=== PATIENT | male | born 1955 | race American Indian/Alaskan Native ===

== ENCOUNTER 2018-10-14 11:29 | Emergency (ER) | payer MEDICARE ==
[2018-10-14 12:48] LABS: Basophils # (Auto) 0.1 K/mm3 (0.0-0.1); Basophils % (Auto) 1.2 % (0.0-1.8); Eosinophils # (Auto) 0.4 K/mm3 (0.0-0.4); Eosinophils % (Auto) 5.8 % (0.0-4.3); Hematocrit 34.3 % (35.5-45.6); Hemoglobin 11.3 gm/dl (11.8-15.2); Lymphocytes # (Auto) 0.5 K/mm3 (1.2-5.4); Lymphocytes % (Auto) 7.1 % (13.4-35.0); Mean Corpuscular HGB Conc 33 % (32-34); Mean Corpuscular Volume 88 fl (84-94); Monocytes # (Auto) 0.6 K/mm3 (0.0-0.8); Monocytes % (Auto) 8.6 % (0.0-7.3); Platelet Count 217 K/mm3 (140-440); Red Cell Distribution Width 16.6 % (13.2-15.2)
[2018-10-14 13:07] LABS: Albumin 3.6 g/dL (3.9-5); Calcium 9.9 mg/dL (8.4-10.2)
--- NOTE | 2018-10-14 13:48 | Emergency Department Report ---
ED General Adult HPI - General Chief complaint: Weakness Stated complaint: LEG PAIN/WEAKNESS/FALL Time Seen by Provider: 10/14/18 11:55 Source: EMS Mode of arrival: Stretcher Limitations: Physical Limitation - History of Present Illness Initial comments: The patient presents to the emergency department with a chief complaint of leg weakness that has been present for the last month. Patient states today while walking his knees gave way. Patient states that the weakness seems like it comes from his lower back and radiates into his legs. Denies any recent injury to his spine. Patient is a dialysis patient but still makes urine. Patient denies chest pain, shortness breath, numbness, headache. -: Gradual Severity scale (0 -10): 0 Improves with: none Worsens with: none Associated Symptoms: denies other symptoms Treatments Prior to Arrival: none - Related Data Previous Rx's Medication Instructions Recorded Last Taken Type Acetaminophen/Codeine [Tylenol 1 tab PO Q6H PRN #12 tab 10/14/18 Unknown Rx /Codeine # 3 tab] Allergies Allergy/AdvReac Type Severity Reaction Status Date / Time No Known Allergies Allergy Unverified 10/14/18 12:07 ED Review of Systems ROS: Stated complaint: LEG PAIN/WEAKNESS/FALL Other details as noted in HPI Comment: All other systems reviewed and negative Constitutional: denies: chills, fever Eyes: denies: eye pain, eye discharge, vision change ENT: denies: ear pain, throat pain Respiratory: denies: cough, shortness of breath, wheezing Cardiovascular: denies: chest pain, palpitations Endocrine: no symptoms reported Gastrointestinal: denies: abdominal pain, nausea, diarrhea Genitourinary: denies: urgency, dysuria Musculoskeletal: denies: back pain, joint swelling, arthralgia Skin: denies: rash, lesions Neurological: denies: headache, weakness, paresthesias Psychiatric: denies: anxiety, depression Hematological/Lymphatic: denies: easy bleeding, easy bruising ED Past Medical Hx - Past Medical History Previous Medical History?: Yes Hx Hypertension: Yes Hx Diabetes: Yes Hx Renal Disease: Yes (ESRD dialysis T, , Mon) - Surgical History Past Surgical History?: Yes Additional Surgical History: LUE AV graft - Social History Smoking Status: Never Smoker Substance Use Type: None - Medications Home Medications: Home Medications Medication Instructions Recorded Confirmed Last Taken Type Acetaminophen/Codeine [Tylenol 1 tab PO Q6H PRN #12 tab 10/14/18 Unknown Rx /Codeine # 3 tab] ED Physical Exam - General Limitations: Physical Limitation General appearance: alert, in no apparent distress - Head Head exam: Present: atraumatic, normocephalic - Eye Eye exam: Present: normal appearance, PERRL, EOMI - ENT ENT exam: Present: mucous membranes moist - Neck Neck exam: Present: normal inspection - Respiratory Respiratory exam: Present: normal lung sounds bilaterally. Absent: respiratory distress - Cardiovascular Cardiovascular Exam: Present: regular rate, normal rhythm. Absent: systolic murmur, diastolic murmur, rubs, gallop - GI/Abdominal GI/Abdominal exam: Present: soft, normal bowel sounds. Absent: distended, tenderness - Rectal Rectal exam: Present: deferred - Extremities Exam Extremities exam: Present: normal inspection - Back Exam Back exam: Present: normal inspection - Neurological Exam Neurological exam: Present: alert, oriented X3, CN II-XII intact. Absent: motor sensory deficit - Psychiatric Psychiatric exam: Present: normal affect, normal mood - Skin Skin exam: Present: warm, dry, intact, normal color. Absent: rash ED Course Vital Signs 10/14/18 10/14/18 10/14/18 12:06 13:39 14:14 Temperature 98.2 F Pulse Rate 98 H 92 H Respiratory 18 18 16 Rate Blood Pressure 150/96 Blood Pressure 156/79 [Right] O2 Sat by Pulse 96 97 Oximetry ED Medical Decision Making - Lab Data Result diagrams: 10/14/18 12:30 10/14/18 12:30 Lab Results 10/14/18 10/14/18 Range/Units 12:30 12:30 WBC 6.5 (4.5-11.0) K/mm3 RBC 3.90 (3.65-5.03) M/mm3 Hgb 11.3 L (11.8-15.2) gm/dl Hct 34.3 L (35.5-45.6) % MCV 88 (84-94) fl MCH 29 (28-32) pg MCHC 33 (32-34) % RDW 16.6 H (13.2-15.2) % Plt Count 217 (140-440) K/mm3 Lymph % (Auto) 7.1 L (13.4-35.0) % [place] % (Auto) 8.6 H (0.0-7.3) % Eos % (Auto) 5.8 H (0.0-4.3) % Baso % (Auto) 1.2 (0.0-1.8) % Lymph # 0.5 L (1.2-5.4) K/mm3 [place] # 0.6 (0.0-0.8) K/mm3 Eos # 0.4 (0.0-0.4) K/mm3 Baso # 0.1 (0.0-0.1) K/mm3 Seg Neutrophils % 77.3 H (40.0-70.0) % Seg Neutrophils # 5.0 (1.8-7.7) K/mm3 Sodium 136 L (137-145) mmol/L Potassium 4.5 (3.6-5.0) mmol/L Chloride 96.7 L (98-107) mmol/L Carbon Dioxide 24 (22-30) mmol/L Anion Gap 20 mmol/L BUN 38 H (9-20) mg/dL Creatinine 7.8 H (0.8-1.5) mg/dL Estimated GFR 9 ml/min BUN/Creatinine Ratio 5 % Glucose 336 H (75-100) mg/dL Calcium 9.9 (8.4-10.2) mg/dL Total Bilirubin 0.30 (0.1-1.2) mg/dL AST 11 (5-40) units/L ALT 13 (7-56) units/L Alkaline Phosphatase 131 H (35-129) units/L Total Protein 7.4 (6.3-8.2) g/dL Albumin 3.6 L (3.9-5) g/dL Albumin/Globulin Ratio 0.9 % - Radiology Data Radiology results: report reviewed - Medical Decision Making Discussed results with patient Critical care attestation.: If time is entered above; I have spent that time in minutes in the direct care of this critically ill patient, excluding procedure time. ED Disposition Clinical Impression: Lumbar disc disease with radiculopathy Disposition: DC- TO HOME OR SELFCARE Is pt being admited?: No Does the pt Need Aspirin: No Condition: Stable Instructions: Lumbar Radiculopathy (ED) Additional Instructions: return if worse Prescriptions: Acetaminophen/Codeine [Tylenol /Codeine # 3 tab] 1 tab PO Q6H PRN #12 tab PRN Reason: pain Referrals: JAIR BERRY MD [Primary Care Provider] - 3-5 Days PERRI LEON MD [Staff Physician] - 3-5 Days Time of Disposition: 14:53
--- NOTE | 2018-10-14 14:09 | Cat Scan Report ---
PROCEDURE: CT LUMBAR SPINE WO CON TECHNIQUE: CT of the lumbar spine performed. Axial images and coronal and sagittal reformatted images were obtained. HISTORY: leg weakness COMPARISON: None FINDINGS: Vertebral heights and alignment are maintained. There is no fracture seen. There is a large Schmorl's node involving the inferior endplate of L3. At L1-2 there is mild facet arthropathy. There is no spinal or neuroforaminal stenosis. At L2-3 there is moderate facet arthropathy and enlargement. There is no spinal or neuroforaminal pako nosis. At L3-4 there is a mildly narrowed intervertebral disc which demonstrates a mild broad-based bulge. T here is endplate spurring. There is moderate facet arthropathy and enlargement with ligamentum flavum hypertrophy. Findings cause mild spinal stenosis. Note is made of a large Schmorl's node involving t he inferior endplate of L3. There is some adjacent sclerotic change in the vertebra. At L4-5 there is a moderately narrowed vacuum intervertebral discs. There is diffuse moderate endplat e spurring and the mild posterior disc osteophyte complex. There is mild facet arthropathy and enlarg ement. Findings cause mild spinal stenosis. At L5-S1 there is no disc protrusion or spinal stenosis. There is mild facet arthropathy. IMPRESSION: Multilevel degenerative changes. Disc disease most notable at L4-5. Facet arthropathy most notable at L3-4. Findings cause mild spinal stenosis at both levels. Note is made of L3 large inferior endplate Schmorl's node. This document is electronically signed by Brenda Morales MD., October 14 2018 03:07:40 PM ET
[2018-10-14 14:15] VITALS: BP 156/79
== END 2018-10-14 15:30 | disposition home or self-care (01) ==
LOC: ED 11:29
DX: M51.16 Intervertebral disc disorders with radiculopathy, lumbar region (principal); E11.22 Type 2 diabetes mellitus with diabetic chronic kidney disease; I12.0 Hypertensive chronic kidney disease with stage 5 chronic kidney disease or end stage renal disease; N18.6 End stage renal disease; Z99.2 Dependence on renal dialysis
CPT/HCPCS: 36415; 72131; 80053; 85025; 93005; 93010

== ENCOUNTER 2019-04-29 10:15 | Inpatient (IN) | payer MEDICARE ==
--- NOTE | 2019-04-29 12:34 | Cat Scan Report ---
CT head/brain wo con INDICATION / CLINICAL INFORMATION: 63 years Male; neuro deficits <6hrs or sx present upon awakening. TECHNIQUE: Routine CT head without contrast. All CT scans at this location are performed using CT dos e reduction for ALARA by means of automated exposure control. COMPARISON: None. FINDINGS: BRAIN / INTRACRANIAL CONTENTS: No acute hemorrhage, mass effect, midline shift, hydrocephalus, or acu te, large territorial infarct. Mild cerebral and cerebellar atrophy. There are minimal areas of decreased attenuation in the white matter of the cerebral hemispheres. The se are nonspecific findings and may be related to microangiopathy (hypertension, diabetes, atheroscle rosis), given the patient's age. It might be difficult to evaluate for small areas of ischemia withou t diffusion imaging by MRI. CRANIOCERVICAL JUNCTION: No significant abnormality. ORBITS: No significant abnormality of visualized orbits. SINUSES / MASTOIDS: No significant abnormality the visualized paranasal sinuses or mastoid air cells. ADDITIONAL FINDINGS: Atherosclerotic disease is seen in the anterior and posterior circulation. IMPRESSION: 1. No focal mass, hemorrhage, hydrocephalus, or large infarct seen. This exam was performed as part of a code stroke protocol. The exam was completed on 04/29/2019 11:21 AM. The exam was reviewed at 11:[address] Nicolas was notified at 11:27 AM. Signer Name: Grayson Vaughn MD, III Signed: 04/29/2019 12:30 PM Workstation Name: [id number]
[2019-04-29 13:03] LABS: INR 0.96 (0.87-1.13)
[2019-04-29 13:04] LABS: Partial Thromboplastin Time 27.9 Sec. (24.2-36.6)
[2019-04-29 13:14] LABS: Calcium 9.8 mg/dL (8.4-10.2)
--- NOTE | 2019-04-29 13:16 | Emergency Department Report ---
ED General Adult HPI - General Chief complaint: Extremity Problem,Nontraumatic Stated complaint: CVA Time Seen by Provider: 04/29/19 11:39 Source: patient, EMS Mode of arrival: Stretcher Limitations: Physical Limitation - History of Present Illness Initial comments: [facility] Date of Service: 04/29/2019 11:49:42 Impression: RO Acute Ischemic Stroke Comments: 63 year old male with history of CKD who presents with symptoms left side weakness and slurred speech. Presentation is likely due to stroke. Mechanism of Stroke: Not Clear Metrics: Last Known Well: Unknown [facility] Notification Time: 04/29/2019 11:48:47 Arrival Time: 04/29/2019 10:42:00 Stamp Time: 04/29/2019 11:49:42 Time First Login Attempt: 04/29/2019 11:49:00 Video Start Time: 04/29/2019 11:49:00 Symptoms: Left side weakness NIHSS Start Assessment Time: 04/29/2019 12:15:00 Patient is not a candidate for tPA. Patient was not deemed candidate for tPA thrombolytics because of Last Well Known Above 4.5 Hours. Video End Time: 04/29/2019 12:20:00 CT head was reviewed. Advanced imaging was not obtained as the presentation was not suggestive of Large Vessel Occlusive Disease. ER Physician notified of the decision on thrombolytics management on 04/29/2019 12:40:00 Our recommendations are outlined below. Recommendations: Activate Stroke Protocol Admission/Order Set Stroke/Telemetry Floor Neuro Checks Bedside Swallow Eval DVT Prophylaxis IV Fluids, Normal Saline Head of Bed Below 30 Degrees Euglycemia and Avoid Hyperthermia (PRN Acetaminophen) Antiplatelet Therapy Recommended Recommended Scan: MRI Head Without Contrast MRA Neck with and Without Contrast Lipid Panel to Be Obtained, if Not Done in the Last Three Months Therapies: Physical Therapy, Occupational Therapy, Speech Therapy Assessment When Applicable Dysphaghia Screen: Swallow Evaluation, Bedside NPO Until Swallow Evaluation DVT prophylaxis: Choice of Primary Team Disposition: Follow up with Teleneurology Follow up Sign Out: Discussed with Emergency Department Provider History of Present Illness: Patient is a 63 year old Male. Patient was brought by private transportation with symptoms of Left side weakness 63 year old male with a history of CKD on dialysis who presents with left arm numbness and weakness for the past 1-2 weeks. Today patient noted worsening of his left side weakness as well as difficulty with slurred speech. On presentation patient felt like his speech had resolved mostly but his weakness still persisted. CT head was reviewed. Examination: 1A: Level of Consciousness - Alert; keenly responsive + 0 1B: Ask Month and Age - Could Not Answer Either Question Correctly + 2 1C: Blink Eyes & Squeeze Hands - Performs Both Tasks + 0 2: Test Horizontal Extraocular Movements - Normal + 0 3: Test Visual Choudhury - No Visual Loss + 0 4: Test Facial Palsy (Use Grimace if Obtunded) - Normal symmetry + 0 5A: Test Left Arm Motor Drift - Drift, but doesn't hit bed + 1 5B: Test Right Arm Motor Drift - No Drift for 10 Seconds + 0 6A: Test Left Leg Motor Drift - Drift, but doesn't hit bed + 1 6B: Test Right Leg Motor Drift - No Drift for 5 Seconds + 0 7: Test Limb Ataxia (FNF/Heel-Kamara) - No Ataxia + 0 8: Test Sensation - Normal; No sensory loss + 0 9: Test Language/Aphasia - Mild-Moderate Aphasia: Some Obvious Changes, Without Significant Limitation + 1 10: Test Dysarthria - Mild-Moderate Dysarthria: Slurring but can be understood + 1 11: Test Extinction/Inattention - No abnormality + 0 NIHSS Score: 6 Patient was informed the Neurology Consult would happen via TeleHealth consult by way of interactive audio and video telecommunications and consented to receiving care in this manner. Due to the immediate potential for life-threatening deterioration due to underlying acute neurologic illness, I spent 35 minutes providing critical care. This time includes time for face to face visit via telemedicine, review of medical records, imaging studies and discussion of findings with providers, the patient and/or family. Dr Samantha Dubon [facility] Case [id number] - Related Data Previous Rx's Medication Instructions Recorded Last Taken Type Acetaminophen/Codeine [Tylenol 1 tab PO Q6H PRN #12 tab 10/14/18 Unknown Rx /Codeine # 3 tab] Allergies Allergy/AdvReac Type Severity Reaction Status Date / Time No Known Allergies Allergy Unverified 10/14/18 12:07 ED Review of Systems ROS: Stated complaint: CVA Other details as noted in HPI ED Past Medical Hx - Past Medical History Hx Hypertension: Yes Hx Diabetes: Yes Hx Renal Disease: Yes (ESRD dialysis T, , Mon) - Surgical History Additional Surgical History: LUE AV graft - Social History Smoking Status: Never Smoker Substance Use Type: None - Medications Home Medications: Home Medications Medication Instructions Recorded Confirmed Last Taken Type Acetaminophen/Codeine [Tylenol 1 tab PO Q6H PRN #12 tab 10/14/18 Unknown Rx /Codeine # 3 tab] ED Physical Exam - General Limitations: Physical Limitation ED Course Vital Signs 04/29/19 04/29/19 04/29/19 10:38 10:42 11:01 Temperature 97.6 F Pulse Rate 88 87 80 Respiratory 12 13 12 Rate Blood Pressure 186/86 165/78 O2 Sat by Pulse 99 99 98 Oximetry 04/29/19 04/29/19 12:14 12:31 Temperature Pulse Rate 88 Respiratory 15 Rate Blood Pressure 165/78 217/103 O2 Sat by Pulse 98 97 Oximetry ED Medical Decision Making - Lab Data Result diagrams: 04/29/19 12:27 Critical care attestation.: If time is entered above; I have spent that time in minutes in the direct care of this critically ill patient, excluding procedure time. ED Disposition Clinical Impression: Stroke Disposition: DC-09 OP ADMIT IP TO THIS HOSP Is pt being admited?: Yes Condition: Stable
[2019-04-29 13:30] LABS: Chol/HDL Ratio 4.2 %
[2019-04-29 13:57] LABS: Basophils # (Auto) 0.1 K/mm3 (0.0-0.1); Eosinophils # (Auto) 0.4 K/mm3 (0.0-0.4); Eosinophils % (Auto) 6.4 % (0.0-4.3); Hematocrit 31.4 % (35.5-45.6); Hemoglobin 10.1 gm/dl (11.8-15.2); Lymphocytes % (Auto) 10.1 % (13.4-35.0); Mean Corpuscular HGB Conc 32 % (32-34); Mean Corpuscular Volume 87 fl (84-94); Monocytes # (Auto) 0.7 K/mm3 (0.0-0.8); Monocytes % (Auto) 10.4 % (0.0-7.3); Platelet Count 246 K/mm3 (140-440); Red Blood Count 3.59 M/mm3 (3.65-5.03)
[2019-04-29 13:58] LABS: Red Cell Distribution Width 17.9 % (13.2-15.2)
[2019-04-29 13:59] LABS: Basophils % (Auto) 0.9 % (0.0-1.8); Lymphocytes # (Auto) 0.6 K/mm3 (1.2-5.4)
--- NOTE | 2019-04-29 14:28 | Emergency Department Report ---
ED Neuro Deficit HPI - General Chief Complaint: Extremity Problem,Nontraumatic Stated Complaint: CVA Time Seen by Provider: 04/29/19 11:39 Source: patient, EMS Mode of arrival: Stretcher Limitations: Physical Limitation - History of Present Illness Initial Comments: This is a 63-year-old man who is a very difficult historian. He was thought to have stroke symptoms which started on Monday. It may be that his sister who is extremely variable. My encounter he tells me he developed acute left sided weakness and numbness in his left arm associated with right facial numbness and drooping which began at 8 AM today. He is very hard of hearing. I had to ask him multiple times regarding his last known well time. This is the best history I could obtain which was variable from his triage history. However, he has a very variable historian and I can't say that this history is at all reliable. The patient also told me that he was having healing of his arm on Monday. He stated that his difficulty with ambulation speech occurred at 8 AM today. Due to the variability of his history, a code stroke was not called at triage. I saw the patient at approximately 1140 when I first picked up his chart. Emergency Department was very dizzy with more alterable admissions and critical care patients. I did call a code stroke at the time of my encounter. Was seen by tele-neurologist who could not determine with accuracy what his last known well time was. His family additionally was of no additional information. -: Gradual, hour(s) Location: right face, left arm, left leg Presenting Symptoms: Present: Weak/Paralyzed One Side, Unable to Speak Clearly History of same: No Place: home Severity: moderate, severe Quality: weak, numb, tingling Improves With: none On Anticoagulants: No Context: gradual onset - Related Data Home Medications: Previous Rx's Medication Instructions Recorded Last Taken Type Acetaminophen/Codeine [Tylenol 1 tab PO Q6H PRN #12 tab 10/14/18 Unknown Rx /Codeine # 3 tab] Allergies/Adverse Reactions: Allergies Allergy/AdvReac Type Severity Reaction Status Date / Time No Known Allergies Allergy Unverified 10/14/18 12:07 ED Review of Systems ROS: Stated complaint: CVA Other details as noted in HPI ED Past Medical Hx - Past Medical History Hx Hypertension: Yes Hx Diabetes: Yes Hx Renal Disease: Yes (ESRD dialysis T, , Mon) - Surgical History Additional Surgical History: LUE AV graft - Social History Smoking Status: Never Smoker Substance Use Type: None - Medications Home Medications: Home Medications Medication Instructions Recorded Confirmed Last Taken Type Acetaminophen/Codeine [Tylenol 1 tab PO Q6H PRN #12 tab 10/14/18 Unknown Rx /Codeine # 3 tab] ED Neuro Physical Exam - General Limitations: Physical Limitation General appearance: alert, in no apparent distress Suspected Stroke: Yes - Head Head exam: Present: atraumatic, normocephalic - Eye Eye exam: Present: normal appearance. Absent: scleral icterus - ENT ENT exam: Present: mucous membranes moist - Neck Neck exam: Present: normal inspection. Absent: tenderness, meningismus - Respiratory Respiratory exam: Present: normal lung sounds bilaterally. Absent: respiratory distress - Cardiovascular Cardiovascular Exam: Present: regular rate, normal rhythm. Absent: systolic murmur, diastolic murmur, rubs, gallop - GI/Abdominal GI/Abdominal exam: Present: soft, normal bowel sounds. Absent: distended, tenderness, guarding, rebound - Rectal Rectal exam: Present: deferred - Extremities Exam Extremities exam: Present: normal inspection - Back Exam Back exam: Present: other (paramedics started an IV above the patient's graft. This was removed by nursing here. Fistula noted right forearm) - Neurological Exam Neurological exam: Present: alert, motor sensory deficit. Absent: CN II-XII intact - NIHSS Assessment Interval: Baseline 1a. Level of Consciousness: alert/keenly responsive 1b. LOC Questions: answers both correctly 1c. LOC Commands: performs tasks correctly 2. Best Gaze: normal 3. Visual: no visual loss 4. Facial Palsy: partial paralysis 5b. Motor Arm Right: no drift 5a. Motor Arm Left: no drift (patient passed the test of drift but does appear to have tremor and 4+5 strength on the left side.) 6a. Motor Leg Left: no drift (see above) 6b. Motor Leg Right: no drift 7. Limb Ataxia: absent 8. Sensory: mild/moderate sensory loss (left arm sensory change) 9. Best Language: no aphasia 10. Dysarthria: mild/moderate dysarthria 11. Extinction/Inattention: no abnormality Total Score: 4 Stroke Severity: Minor Stroke - Psychiatric Psychiatric exam: Present: normal affect, normal mood - Skin Skin exam: Present: warm, dry, intact, normal color. Absent: rash ED Course Vital Signs 04/29/19 04/29/19 04/29/19 10:38 10:42 11:01 Temperature 97.6 F Pulse Rate 88 87 80 Respiratory 12 13 12 Rate Blood Pressure 186/86 165/78 Blood Pressure [Right] O2 Sat by Pulse 99 99 98 Oximetry 04/29/19 04/29/19 04/29/19 12:05 12:14 12:31 Temperature Pulse Rate 88 Respiratory 20 15 Rate Blood Pressure 165/78 217/103 Blood Pressure [Right] O2 Sat by Pulse 100 98 97 Oximetry 04/29/19 04/29/19 13:15 13:33 Temperature Pulse Rate 84 84 Respiratory 14 Rate Blood Pressure 194/102 Blood Pressure 210/93 [Right] O2 Sat by Pulse 98 Oximetry - Reevaluation(s) Reevaluation #1: His blood pressure became extremely elevated. He was given a small dose of labetalol. Consult with teleneurology feel the patient was a candidate for TPA. 04/29/19 14:38 I spoke to nephrology, Dr. Hernadez will be seeing the patient. The patient was given Kayexalate. I spoke with Dr. Vyas who has admitted the patient. - Lab Data Result diagrams: 04/29/19 13:10 04/29/19 12:27 Lab Results 04/29/19 04/29/19 04/29/19 Range/Units 12:27 12:27 13:10 WBC 6.4 (4.5-11.0) K/mm3 RBC 3.59 L (3.65-5.03) M/mm3 Hgb 10.1 L (11.8-15.2) gm/dl Hct 31.4 L (35.5-45.6) % MCV 87 (84-94) fl MCH 28 (28-32) pg MCHC 32 (32-34) % RDW 17.9 H (13.2-15.2) % Plt Count 246 (140-440) K/mm3 Lymph % (Auto) 10.1 L (13.4-35.0) % [place] % (Auto) 10.4 H (0.0-7.3) % Eos % (Auto) 6.4 H (0.0-4.3) % Baso % (Auto) 0.9 (0.0-1.8) % Lymph # 0.6 L (1.2-5.4) K/mm3 [place] # 0.7 (0.0-0.8) K/mm3 Eos # 0.4 (0.0-0.4) K/mm3 Baso # 0.1 (0.0-0.1) K/mm3 Seg Neutrophils % 72.2 H (40.0-70.0) % Seg Neutrophils # 4.6 (1.8-7.7) K/mm3 PT 12.9 (12.2-14.9) Sec. INR 0.96 (0.87-1.13) APTT 27.9 (24.2-36.6) Sec. Thrombin Time 17.0 (15.1-19.6) Sec. Sodium 140 (137-145) mmol/L Potassium 5.1 H (3.6-5.0) mmol/L Chloride 100.2 (98-107) mmol/L Carbon Dioxide 20 L (22-30) mmol/L Anion Gap 25 mmol/L BUN 44 H (9-20) mg/dL Creatinine 8.5 H (0.8-1.5) mg/dL Estimated GFR 8 ml/min BUN/Creatinine Ratio 5 % Glucose 198 H (75-100) mg/dL Calcium 9.8 (8.4-10.2) mg/dL Troponin T 0.269 H* (0.00-0.029) ng/mL Triglycerides 129 (2-149) mg/dL Cholesterol 185 (50-199) mg/dL LDL Cholesterol Direct 118 (50-130) mg/dL HDL Cholesterol 44 (40-59) mg/dL Cholesterol/HDL Ratio 4.20 % - EKG Data -: EKG Interpreted by In EKG shows normal: sinus rhythm Rate: normal Interpretation: LVH (possible old inferior zone. No acute ischemic changes. Normal axis) - Radiology Data Radiology results: pending - Thrombolytic Inclusion/Exclusion Thrombolytic Exclusion Criteria: Symptom Onset > 3 Hours Critical Care Time: Yes Critical care time in (mins) excluding proc time.: 60 Critical care attestation.: If time is entered above; I have spent that time in minutes in the direct care of this critically ill patient, excluding procedure time. ED Disposition Clinical Impression: Accelerated hypertension, Hyperkalemia, End stage renal disease on dialysis Stroke Qualifiers: CVA mechanism: unspecified Qualified Code(s): I63.9 - Cerebral infarction, unspecified Disposition: DC-09 OP ADMIT IP TO THIS HOSP Is pt being admited?: Yes Does the pt Need Aspirin: Yes Condition: Stable Instructions: Hypertension (ED) Referrals: PRIMARY CARE, [Primary Care Provider] - 3-5 Days Time of Disposition: 14:45
[2019-04-29] MEDS ORDERED: SODIUM POLYSTYRENE 15 GM/60 ML ORAL LIQD PO ONE (14:32)
[2019-04-29] MEDS ORDERED: ASPIRIN 325 MG TAB PO ONE (14:47)
--- NOTE | 2019-04-29 15:38 | Consultation ---
History of Present Illness - Reason for Consult Consult date: 04/29/19 end stage renal disease, hyperkalemia - History of Present Illness The patient is a 63 YO male with history significant for Obesity, HTN, DM type 2, ESRD on HD(TTS) who presented to [facility] 04/29 with c/o right sided facial droop and left arm and leg weakness that started 2 days ago. Pt is very hard of hearing and history is somewhat limited. He disregarded his symptoms and subsequently went to his routine scheduled dialysis on Monday. He experienced worsening of the above symptoms today. A code stroke was called and the patient was transported to [facility]. Pt was admitted for further evaluation of CVA. His initial BP was around 217/103. Patient also mentioned that he was given Abx for ulcer in the penis. Nephrology was consulted to manage ESRD. He was last dialyzed 2 days ago and due for hemodialysis tomorrow. Past History Past Medical History: anemia, diabetes, dialysis, ESRD, hypertension Medications and Allergies Allergies Allergy/AdvReac Type Severity Reaction Status Date / Time No Known Allergies Allergy Unverified 10/14/18 12:07 Home Medications Medication Instructions Recorded Confirmed Last Taken Type Sevelamer Carbonate [Renvela] 800 mg PO TIDWM 04/29/19 04/29/19 1 Day Ago History ~04/28/19 carvediloL [Coreg] 12.5 mg PO BID 04/29/19 04/29/19 1 Day Ago History ~04/28/19 glyBURIDE [Diabeta] 5 mg PO BID 04/29/19 04/29/19 1 Day Ago History ~04/28/19 Review of Systems Constitutional: no weight loss, no weight gain, no fever, no chills, no anorexia, no fatigue, no weakness, no poor appetite Cardiovascular: high blood pressure, no chest pain, no orthopnea, no edema, no syncope, no lightheadedness, no shortness of breath, no leg edema Respiratory: no cough, no hemoptysis, no shortness of breath, no home oxygen Gastrointestinal: no abdominal pain, no nausea, no vomiting, no diarrhea, no melena Genitourinary Male: genital sores, no dysuria, no hematuria Rectal: no bleeding Integumentary: no rash, no jaundice Neurological: paralysis, weakness, parathesias, numbness, tingling, no seizures, no syncope, no convulsions, no aphasia, no change in speech, no change in mentation, no confusion, no memory loss Exam - Vital Signs Vital signs: Vital Signs Pulse Resp Pulse Ox 88 12 99 04/29/19 10:38 04/29/19 10:38 04/29/19 10:38 - General Appearance General appearance: well-developed, well-nourished, appears stated age, other (not in distress) EENT: ATNC, PERRL, vision intact, hearing diminished Neck: Present: neck supple, trachea midline Respiratory: Clear to Ascultation Heart: regular, S1S2, no murmurs Gastrointestinal: Present: normoactive bowel sounds. Absent: tenderness, distended Integumentary: no rash, warm and dry, ulcer (a large (1.5X1.5 cm) ulcer the bulb of the penis noted) Neurologic: no asterixis, alert and oriented x3, CN 3-12 intact, other (strength appears equal) Musculoskeletal: Present: other (no edema, L FA AVF) Results - Lab Results 04/29/19 13:10 04/29/19 12:27 Most recent lab results Calcium 9.8 mg/dL (8.4-10.2) 04/29/19 12:27 Assessment and Plan 1. ESRD: Patient is on maintenance hemodialysis three times a week, TTS schedule. Next HD tomorrow. 2. FEN: Hyperkalemia, kayexalate ordered. Metabolic acidosis, monitor. Renal diet. Monitor. 3. Acute CVA. 4. Anemia: POA. Epogen with HD. 5. Uncontrolled HTN: Permissive HTN. Resume BP meds. 6. Penile ulcer.
--- NOTE | 2019-04-29 15:39 | XRay Report ---
CHEST 1 VIEW 04/29/2019 2:32 PM INDICATION / CLINICAL INFORMATION: hypertension. COMPARISON: None available. FINDINGS: SUPPORT DEVICES: None. HEART / MEDIASTINUM: No significant abnormality. LUNGS / PLEURA: No significant pulmonary or pleural abnormality. No pneumothorax. ADDITIONAL FINDINGS: No significant additional findings. IMPRESSION: 1. No acute abnormality of the chest. Signer Name: Aristeo Plasencia MD Signed: 04/29/2019 3:34 PM Workstation Name: [id number]
--- NOTE | 2019-04-29 15:44 | History and Physical Report ---
History of Present Illness Chief complaint: I feel weak on my right side History of present illness: 63 YO Male with Obesity, HTN, DM, ESRD on HD(T,R,Sa) presents to ED for evaluation. Pt states that he was in his usual state of health and experienced an acute onset of right sided facial droop and left arm and leg weakness. Pt states that he disregarded his symptoms and subsequently went to his routine scheduled dialysis on Monday. Pt states that he thought his symptoms were better, but he experienced worsening of the aforementioned symptoms today. EMS notified, and upon arrival the patient was found to be in distress. A code stroke was called and the patient transported to [facility]. Pt seen and evaluated in ED and found to have symptoms consistent with CVA, as well as ESRD, and uncontrolled HTN with blood pressure of 217/103. Pt placed in observation status and admitted to Telemetry for medical stabilization. Pt initiated on CVA protocol. Teleneurology consulted. Pt deemed not a candidate for TPA. Nephrology consulted in ED. No prior admission for review. All listed medication reconciled at time of admission. Past History Past Medical History: ESRD, hypertension, other (see HPI) Past Surgical History: Other (dailysis catheter) Social history: single. denies: smoking, alcohol abuse, prescription drug abuse Family history: diabetes, hypertension Medications and Allergies Allergies Allergy/AdvReac Type Severity Reaction Status Date / Time No Known Allergies Allergy Unverified 10/14/18 12:07 Home Medications Medication Instructions Recorded Confirmed Last Taken Type Sevelamer Carbonate [Renvela] 800 mg PO TIDWM 04/29/19 04/29/19 1 Day Ago History ~04/28/19 carvediloL [Coreg] 12.5 mg PO BID 04/29/19 04/29/19 1 Day Ago History ~04/28/19 glyBURIDE [Diabeta] 5 mg PO BID 04/29/19 04/29/19 1 Day Ago History ~04/28/19 Review of Systems Constitutional: no weight loss, no weight gain Ears, nose, mouth and throat: no ear pain, no tinnitis, no nasal congestion, no nasal discharge Cardiovascular: no chest pain, no orthopnea, no palpitations, no rapid/irregular heart beat, no syncope, no shortness of breath Respiratory: no cough, no cough with sputum, no hemoptysis, no dyspnea on exertion Gastrointestinal: no nausea, no vomiting, no diarrhea, no constipation, no change in bowel habits Genitourinary Male: no hematuria, no flank pain, no discharge, no urinary frequency, no urinary hesitancy, no incontinence Rectal: no pain, no incontinence, no bleeding Musculoskeletal: no neck stiffness, no neck pain, no arm numbness/tingling, no low back pain, no shooting leg pain Integumentary: no rash, no pruritis, no sores, no wounds Neurological: weakness, change in speech, gait dysfunction, motor disturbance, no head injury, no tingling, no headaches, no migraines, no confusion Psychiatric: no anxiety, no memory loss, no change in sleep habits, no sleep disturbances, no insomnia, no hypersomnia, no change in appetite Endocrine: no cold intolerance, no heat intolerance, no polyphagia, no excessive thirst, no polydipsia, no nocturia Hematologic/Lymphatic: no easy bruising, no easy bleeding, no lymphadenopathy, no lymphedema Allergic/Immunologic: no allergic rhinitis, no persistent infections, no shane phylaxis, no angioedema Exam - Constitutional Vitals: Temp Pulse Resp BP Pulse Ox 97.6 F 85 15 198/100 98 04/29/19 10:42 04/29/19 15:01 04/29/19 15:01 04/29/19 15:01 04/29/19 15:01 General appearance: Present: mild distress, obese - EENT Eyes: Present: PERRL ENT: hearing intact, clear oral mucosa - Neck Neck: Present: supple, normal ROM - Respiratory Respiratory effort: normal Respiratory: bilateral: CTA - Cardiovascular Heart Sounds: Present: S1 & S2. Absent: rub, click - Extremities Extremities: pulses symmetrical, No edema Peripheral Pulses: within normal limits - Abdominal General gastrointestinal: Present: soft, non-tender, non-distended, normal bowel sounds Male genitourinary: Present: normal - Integumentary Integumentary: Present: clear, warm, dry - Musculoskeletal Musculoskeletal: generalized weakness - Psychiatric Psychiatric: appropriate mood/affect, intact judgment & insight - Neurologic Neurologic: CNII-XII intact, moves all extremities, no gait normal Results - Labs CBC & Chem 7: 04/29/19 13:10 04/29/19 12:27 Labs: Abnormal lab results 12/16/19 12/16/19 Range/Units 12:27 13:10 RBC 3.59 L (3.65-5.03) M/mm3 Hgb 10.1 L (11.8-15.2) gm/dl Hct 31.4 L (35.5-45.6) % RDW 17.9 H (13.2-15.2) % Lymph % (Auto) 10.1 L (13.4-35.0) % [place] % (Auto) 10.4 H (0.0-7.3) % Eos % (Auto) 6.4 H (0.0-4.3) % Lymph # 0.6 L (1.2-5.4) K/mm3 Seg Neutrophils % 72.2 H (40.0-70.0) % Potassium 5.1 H (3.6-5.0) mmol/L Carbon Dioxide 20 L (22-30) mmol/L BUN 44 H (9-20) mg/dL Creatinine 8.5 H (0.8-1.5) mg/dL Glucose 198 H (75-100) mg/dL Troponin T 0.269 H* (0.00-0.029) ng/mL Assessment and Plan - Patient Problems (1) CVA (cerebral vascular accident) Current Visit: Yes Status: Acute Qualifiers: Laterality of affected vessel: unspecified Plan to address problem: CVA Protocol: Teleneurology consulted, neurology consulted, CT head, neuro checks, PT/OT/Speech therapy, lipid panel, antiplatelet therapy, Permissive hypertension overnight. IV hydralazine for SBP greater that 180. [place] systolic overnight between 155-180 (2) Hypertensive urgency, malignant Current Visit: Yes Status: Acute Plan to address problem: Monitor BP q shift, IV hydralazine prn, continue medical management. (3) Diabetes Current Visit: Yes Status: Acute Plan to address problem: ADA diet, insulin, accu check, hypoglycemia protocol (4) End stage renal disease on dialysis Current Visit: Yes Status: Acute Plan to address problem: Nephrology consulted in ED, dialysis as per renal team, strict I/O, monitor uop q shift, avoid nephrotoxic agents, (5) DVT prophylaxis Current Visit: Yes Status: Acute Plan to address problem: SCD to BLE while in bed, prophylactic heparin
[2019-04-29] MEDS ORDERED: ACETAMINOPHEN 325 MG TAB PO PRN (15:45)
[2019-04-29] MEDS ORDERED: METOCLOPRAMIDE 10 MG TAB PO PRN (15:45)
[2019-04-29] MEDS ORDERED: PROMETHAZINE 25 MG RECT SUPP PR PRN (15:45)
[2019-04-29] MEDS ORDERED: ONDANSETRON 4 MG/2 ML INJ IV PRN (15:45)
[2019-04-29] MEDS ORDERED: MAGNESIUM HYDROXIDE (MOM) ORAL LIQD UDC PO PRN (15:45)
[2019-04-29] MEDS ORDERED: SODIUM POLYSTYRENE 15 GM/60 ML ORAL LIQD ONE (17:47)
[2019-04-29] MEDS ORDERED: ASPIRIN 325 MG TAB ONE (17:48)
[2019-04-29] MEDS: carvediloL 12.5 MG TAB PO SCH (21:46)
[2019-04-29] MEDS: HEPARIN 5,000 UNIT/1 ML VIAL SUB-Q SCH (21:47)
[2019-04-30] MEDS: hydrALAZINE 20 MG/1 ML INJ IV PRN ×2 (03:32→21:06)
[2019-04-30 06:08] LABS: Calcium 9.4 mg/dL (8.4-10.2)
[2019-04-30] MEDS ORDERED: SODIUM CHLORIDE 0.9% 100 ML IV PRN (06:25)
[2019-04-30] MEDS ORDERED: HEPARIN 10,000 UNITS/10 ML VIAL IV PRN (06:25)
[2019-04-30 09:35] LABS: Hepatitis B Surface Antigen Non-Reactive (Negative); Hepatitis C Virus Antibody Non-Reactive (NonReactive)
[2019-04-30] MEDS: carvediloL 12.5 MG TAB PO SCH ×2 (09:42→21:06)
[2019-04-30] MEDS: SEVELAMER CARBONATE 800 MG TAB PO SCH ×3 (09:43→19:22)
[2019-04-30] MEDS: HEPARIN 5,000 UNIT/1 ML VIAL SUB-Q SCH ×2 (09:44→23:48)
[2019-04-30] MEDS ORDERED: ASPIRIN 325 MG TAB PO SCH (10:00)
--- NOTE | 2019-04-30 11:21 | Vascular Lab Report ---
Bilateral Carotid Doppler Ultrasound INDICATION : stroke TECHNIQUE: Grayscale and color Doppler imaging performed through the neck. COMPARISON: None FINDINGS: Right: There is no significant atherosclerotic disease. Peak systolic velocity in the CCA is 78 cm/ s with end-diastolic velocity of 16 cm/s. Peak systolic velocity in the proximal ICA is 78 cm/s with end-diastolic velocity of 24 cm/s. ICA to CCA ratio is less than 2. There is antegrade flow in the E CA and the vertebral artery. Left: There is no significant atherosclerotic disease. Peak systolic velocity in the CCA is 79 cm/s w ith end-diastolic velocity of 15 cm/s. Peak systolic velocity in the proximal ICA is 75 cm/s with end -diastolic velocity of 23 cm/s. ICA to CCA ratio is less than 2. There is antegrade flow in the ECA and the vertebral artery. IMPRESSION: No hemodynamically significant stenosis by NASCET criteria. Signer Name: Mohan Varma MD Signed: 04/30/2019 11:17 AM Workstation Name: [id number]
--- NOTE | 2019-04-30 11:54 | Progress Note ---
Assessment and Plan 1. ESRD: Patient is on maintenance hemodialysis three times a week, TTS schedule. HD today. 2. FEN: Hyperkalemia, HD today. Metabolic acidosis, monitor. Renal diet. Monitor. 3. Acute CVA. 4. Anemia: POA. Epogen with HD. 5. Uncontrolled HTN: Permissive HTN. Resume BP meds. 6. Penile ulcer. Examination: General appearance: well-developed, well-nourished, appears stated age, not in distress HEENT: ATNC, MENG, vision intact, hearing diminished Neck: neck supple, trachea midline Respiratory: Clear to Ascultation Heart: regular, S1S2, no murmurs Gastrointestinal: soft, normoactive bowel sounds, not tender Integumentary: warm and dry, papular pigmented rash over both LEs, a large (1.5X1.5 cm) ulcer over the bulb of the penis noted Neurologic: no asterixis, alert and oriented x3, CN 3-12 intact, muscle strength appears equal Ext: no edema Hemodialysis access: L FA AVF Subjective Date of service: 04/30/19 Interval history: Patient was seen and examined at the bedside. Doing ok. Objective - Vital Signs Vital signs: Vital Signs - 12hr 04/30/19 04/30/19 04/30/19 00:00 00:01 00:11 Temperature 98 F Pulse Rate 87 100 H 101 H Respiratory 18 16 15 Rate Blood Pressure 130/60 130/60 Blood Pressure 196/86 [Right] O2 Sat by Pulse 96 95 95 Oximetry 04/30/19 04/30/19 04/30/19 00:21 00:31 00:41 Temperature Pulse Rate 102 H 101 H 99 H Respiratory 24 14 15 Rate Blood Pressure 130/60 130/60 130/60 Blood Pressure [Right] O2 Sat by Pulse 94 95 94 Oximetry 04/30/19 04/30/19 04/30/19 00:51 01:01 01:51 Temperature Pulse Rate 101 H 103 H 95 H Respiratory 17 17 Rate Blood Pressure 130/60 130/60 Blood Pressure [Right] O2 Sat by Pulse 95 95 Oximetry 04/30/19 04/30/19 04/30/19 03:32 04:18 09:42 Temperature 98.3 F Pulse Rate 87 95 H 87 Respiratory 18 Rate Blood Pressure 196/86 132/71 96/61 Blood Pressure [Right] O2 Sat by Pulse 100 Oximetry - Lab 04/29/19 13:10 04/30/19 04:40 Most recent lab results Calcium 9.4 mg/dL (8.4-10.2) 04/30/19 04:40 Phosphorus 6.00 mg/dL (2.5-4.5) H 04/30/19 04:40 Medications & Allergies - Medications Allergies/Adverse Reactions: Allergies No Known Allergies Allergy (Unverified 10/14/18 12:07) Home Medications: Home Medications Medication Instructions Recorded Confirmed Last Taken Type Sevelamer Carbonate [Renvela] 800 mg PO TIDWM 04/29/19 04/29/19 1 Day Ago History ~04/28/19 carvediloL [Coreg] 12.5 mg PO BID 04/29/19 04/29/19 1 Day Ago History ~04/28/19 glyBURIDE [Diabeta] 5 mg PO BID 04/29/19 04/29/19 1 Day Ago History ~04/28/19 Active Medications: Generic Name Dose Route Start Last Admin Trade Name Freq PRN Reason Stop Dose Admin Acetaminophen 650 mg 04/29/19 15:45 04/30/19 00:11 Tylenol PO 650 mg Q4H PRN Administration Pain, Mild (1-3) Aspirin 325 mg 04/30/19 10:00 04/30/19 09:43 Aspirin PO 325 mg QDAY ALMITA Administration Atorvastatin Calcium 40 mg 04/29/19 22:00 04/29/19 21:46 Lipitor PO 40 mg QHS ALMITA Administration Bisacodyl 10 mg 04/29/19 15:45 Dulcolax PA QDAY PRN Constipation Carvedilol 12.5 mg 04/29/19 22:00 04/30/19 09:42 Coreg PO 12.5 mg BID ALMITA Administration Epoetin Rudi 10,000 unit 04/30/19 06:25 Procrit SUB-Q JACKIE PRN hemodialysis Heparin Sodium (Porcine) 5,000 unit 04/29/19 22:00 04/30/19 09:44 Heparin SUB-Q Not Given Q12HR ALMITA Heparin Sodium (Porcine) 2,000 unit 04/30/19 06:25 Heparin 10,000 Units/10 Ml IV JACKIE PRN hemodialysis Hydralazine HCl 20 mg 04/29/19 18:54 04/30/19 03:32 Apresoline IV 20 mg Q4HR PRN Administration HTN SBP>180 Sodium Chloride 100 mls @ 999 mls/hr 04/30/19 06:25 Nacl 0.9% IV JACKIE PRN Hypotension Magnesium Hydroxide 30 ml 04/29/19 15:45 Milk Of Magnesia PO Q4H PRN Constipation Metoclopramide HCl 5 mg 04/29/19 15:45 Reglan PO Q6H PRN Nausea And Vomiting Ondansetron HCl 4 mg 04/29/19 15:45 04/30/19 00:49 Zofran IV 4 mg Q8H PRN Administration Nausea And Vomiting Promethazine HCl 25 mg 04/29/19 15:45 Phenergan PA Q6H PRN Nausea And Vomiting Sevelamer Carbonate 800 mg 04/30/19 08:00 04/30/19 09:43 Renvela PO Not Given TIDWM ALMITA Sodium Chloride 10 ml 04/29/19 15:45 Sodium Chloride Flush Syringe 10 Ml IV PRN PRN LINE FLUSH
[2019-04-30] MEDS ORDERED: SODIUM CHLORIDE*PRIMING MACHINE ONLY FOR DIALYSIS MC ONE (12:52)
--- NOTE | 2019-04-30 13:12 | Progress Note ---
Assessment and Plan / TIA vs CVA - MRI brain: pending - CT head: no acute abnormality - Echo EF 45-50%, CUS: no significant stenosis. - Will hold Aspirin for now, as patient has bleeding per rectum - Cont. statin. LDL 118, goal LDL <70. - Telemetry monitoring while in patient - PT/OT/ST / Hypertensive urgency, malignant Monitor BP q shift, IV hydralazine prn, continue medical management. /Acute rectal bleeding - will check h/h, consult GI, hold any aspirin and heparin product /Anemia, likley from acute on chronic blood loss - will cont to monitor H/H /DM type 2 ADA diet, insulin, accu check, hypoglycemia protocol / End stage renal disease on dialysis Nephrology consulted in ED, dialysis as per renal team, strict I/O, monitor uop q shift, avoid nephrotoxic agents /Hyperkalemia, k should improved after HD / DVT prophylaxis SCD to BLE while in bed Subjective Date of service: 04/30/19 Interval history: Patient seen and examined Having rectal bleeding during MRI vitals stable Objective - Constitutional Vitals: Vital Signs - 12hr 04/30/19 04/30/19 04/30/19 01:51 03:32 04:18 Temperature 98.3 F Pulse Rate 95 H 87 95 H Respiratory 18 Rate Blood Pressure 196/86 132/71 O2 Sat by Pulse 100 Oximetry 04/30/19 04/30/19 04/30/19 09:42 12:30 12:45 Temperature 97.8 F Pulse Rate 87 84 84 Respiratory 16 Rate Blood Pressure 96/61 205/103 205/103 O2 Sat by Pulse Oximetry 04/30/19 13:00 Temperature Pulse Rate 89 Respiratory Rate Blood Pressure 176/100 O2 Sat by Pulse Oximetry General appearance: Present: no acute distress, well-nourished - EENT Eyes: PERRL, EOM intact ENT: hearing intact, clear oral mucosa Ears: bilateral: normal - Neck Neck: supple, normal ROM - Respiratory Respiratory effort: normal Respiratory: bilateral: CTA - Cardiovascular Rhythm: regular Heart Sounds: Present: S1 & S2. Absent: gallop, rub Extremities: pulses intact, No edema, normal color, Full ROM - Gastrointestinal General gastrointestinal: Present: soft, non-tender, non-distended, normal bowel sounds Rectal Exam: other (blood on the bedsheeth and from rectum) - Integumentary Integumentary: clear, warm, dry - Musculoskeletal Musculoskeletal: 1, strength equal bilaterally - Neurologic Neurologic: moves all extremities - Psychiatric Psychiatric: memory intact, appropriate mood/affect, intact judgment & insight - Labs CBC & Chem 7: 05/01/19 13:21 1218 13:21 Labs: Abnormal lab results 04/29/19 04/29/19 04/30/19 Range/Units 12:27 13:10 04:40 RBC 3.59 L (3.65-5.03) M/mm3 Hgb 10.1 L (11.8-15.2) gm/dl Hct 31.4 L (35.5-45.6) % RDW 17.9 H (13.2-15.2) % Lymph % (Auto) 10.1 L (13.4-35.0) % [place] % (Auto) 10.4 H (0.0-7.3) % Eos % (Auto) 6.4 H (0.0-4.3) % Lymph # 0.6 L (1.2-5.4) K/mm3 Seg Neutrophils % 72.2 H (40.0-70.0) % Potassium 5.1 H 5.7 H (3.6-5.0) mmol/L Carbon Dioxide 20 L 17 L (22-30) mmol/L BUN 44 H 51 H (9-20) mg/dL Creatinine 8.5 H 9.2 H (0.8-1.5) mg/dL Glucose 198 H 160 H (75-100) mg/dL Phosphorus 6.00 H (2.5-4.5) mg/dL Troponin T 0.269 H* (0.00-0.029) ng/mL
[2019-04-30] MEDS: EPOETIN ALFA 10,000 UNIT/1 ML INJ SUB-Q PRN (14:22)
--- NOTE | 2019-04-30 17:59 | Consultation ---
History of Present Illness Consult date: 04/30/19 Reason for Consult: Stroke Chief complaint: Left sided weakness, slurred speech History of present illness: Patient is a 63-year-old man with a history of ESRD on HD, hypertension, diabetes mellitus. 2 days ago, patient beganleft-sided weakness, slurred speech, and right facial droop. His symptoms were initially mild, and increased yesterday. After this, patient came to [facility] for further evaluation. Past History Past Medical History: anemia, diabetes, dialysis, ESRD, hypertension Past Surgical History: Other (dailysis catheter) Social history: single. denies: smoking, alcohol abuse, prescription drug abuse Family history: diabetes, hypertension Medications and Allergies Allergies Allergy/AdvReac Type Severity Reaction Status Date / Time No Known Allergies Allergy Unverified 10/14/18 12:07 Home Medications Medication Instructions Recorded Confirmed Last Taken Type Sevelamer Carbonate [Renvela] 800 mg PO TIDWM 04/29/19 04/29/19 1 Day Ago History ~04/28/19 carvediloL [Coreg] 12.5 mg PO BID 04/29/19 04/29/19 1 Day Ago History ~04/28/19 glyBURIDE [Diabeta] 5 mg PO BID 04/29/19 04/29/19 1 Day Ago History ~04/28/19 Active Meds: Active Medications Acetaminophen (Tylenol) 650 mg PO Q4H PRN PRN Reason: Pain, Mild (1-3) Last Admin: 04/30/19 00:11 Dose: 650 mg Documented by: Amlodipine Besylate (Amlodipine) 10 mg PO QDAY [facility] Aspirin (Aspirin) 325 mg PO QDAY [facility] Last Admin: 04/30/19 09:43 Dose: 325 mg Documented by: Atorvastatin Calcium (Lipitor) 40 mg PO QHS [facility] Last Admin: 04/29/19 21:46 Dose: 40 mg Documented by: Bisacodyl (Dulcolax) 10 mg [place] QDAY PRN PRN Reason: Constipation Carvedilol (Coreg) 12.5 mg PO BID [facility] Last Admin: 04/30/19 09:42 Dose: 12.5 mg Documented by: Epoetin Rudi (Procrit) 10,000 unit SUB-Q JACKIE PRN PRN Reason: hemodialysis Last Admin: 04/30/19 14:22 Dose: 10,000 unit Documented by: Heparin Sodium (Porcine) (Heparin) 5,000 unit SUB-Q Q12HR [facility] Last Admin: 04/30/19 09:44 Dose: Not Given Documented by: Heparin Sodium (Porcine) (Heparin 10,000 Units/10 Ml) 2,000 unit IV JACKIE PRN PRN Reason: hemodialysis Hydralazine HCl (Apresoline) 20 mg IV Q4HR PRN PRN Reason: HTN SBP>180 Last Admin: 04/30/19 03:32 Dose: 20 mg Documented by: Hydralazine HCl (Apresoline) 50 mg PO Q8HR [facility] Sodium Chloride (Nacl 0.9%) 100 mls @ 999 mls/hr IV JACKIE PRN PRN Reason: Hypotension Magnesium Hydroxide (Milk Of Magnesia) 30 ml PO Q4H PRN PRN Reason: Constipation Metoclopramide HCl (Reglan) 5 mg PO Q6H PRN PRN Reason: Nausea And Vomiting Morphine Sulfate (Morphine) 2 mg IV Q4H PRN PRN Reason: Pain, Moderate (4-6) Ondansetron HCl (Zofran) 4 mg IV Q8H PRN PRN Reason: Nausea And Vomiting Last Admin: 04/30/19 00:49 Dose: 4 mg Documented by: Promethazine HCl (Phenergan) 25 mg [place] Q6H PRN PRN Reason: Nausea And Vomiting Sevelamer Carbonate (Renvela) 800 mg PO TIDWM [facility] Last Admin: 04/30/19 17:19 Dose: Not Given Documented by: Sodium Chloride (Sodium Chloride Flush Syringe 10 Ml) 10 ml IV PRN PRN PRN Reason: LINE FLUSH Review of Systems All systems: negative Gastrointestinal: BRBPR Neurological: weakness, change in speech Physical Examination - Vital Signs Vital Signs: Vital Signs Pulse Resp Pulse Ox 88 12 99 04/29/19 10:38 04/29/19 10:38 04/29/19 10:38 - Physical Exam Narrative exam: Patient is awake, alert, oriented x4, follows complex commands. No notable dysarthria. No aphasia. PERRL, EOMI, VFF, b/l intact to LT, tongue midline, no facial weakness. 5/5 in RUE/RLE, 4/5 in LLE/LUE. B/l intact to LT. B/l intact to FTN and HTS. 2+ reflexes throughout. - Constitutional General appearance: comfortable - EENT EENT: Present: ATNC, PERRL, mucous membranes moist, hearing intact, vision intact - Respiratory Respiratory: Present: lungs clear, normal breath sounds - Cardiovascular Cardiovascular: Present: regular rate, normal S1, normal S2 Extremities: Present: no clubbing, cyanosis, no inflammation - Gastrointestinal Gastrointestinal: Present: normoactive bowel sounds, soft, non-tender - Integumentary Integumentary: Present: normal - Musculoskeletal Musculoskeletal: Present: no fluid collection, no pain - Psychiatric Psychiatric: Present: mood/affect appropriate - Level of Consciousness 1a. Level of Consciousness: alert/keenly responsive - LOC Questions 1b. LOC Questions: answers both correctly - LOC Command 1c. LOC Commands: performs tasks correctly - Best Gaze 2. Best Gaze: normal - Visual 3. Visual: no visual loss - Facial Palsy 4. Facial Palsy: normal symmetrical movement - Motor Arm 5a. Motor Arm Left: no drift 5b. Motor Arm Right: no drift - Motor Leg 6a. Motor Leg Left: drift 6b. Motor Leg Right: no drift - Limb Ataxia 7. Limb Ataxia: absent - Sensory 8. Sensory: normal - Best Language 9. Best Language: no aphasia - Dysarthria 10. Dysarthria: normal - Extinction and Inattention 11. Extinction/Inattention: no abnormality - Scoring Total Score: 1 Stroke Severity: Minor Stroke Results - Laboratory Findings CBC and BMP: 04/29/19 13:10 04/30/19 04:40 Abnormal Lab Findings: Abnormal Labs 04/29/19 04/29/19 04/30/19 12:27 13:10 04:40 RBC 3.59 L Hgb 10.1 L Hct 31.4 L RDW 17.9 H Lymph % (Auto) 10.1 L Barron % (Auto) 10.4 H Eos % (Auto) 6.4 H Lymph # 0.6 L Seg Neutrophils % 72.2 H Potassium 5.1 H 5.7 H Carbon Dioxide 20 L 17 L BUN 44 H 51 H Creatinine 8.5 H 9.2 H Glucose 198 H 160 H Phosphorus 6.00 H Troponin T 0.269 H* Assessment and Plan Patient is a 63-year-old man with a history of ESRD on HD, hypertension, diabetes mellitus, who p/w left sided weakness and slurred speech. According to the patient's clinical findings, it is likely that he has had an ischemic stroke. Plan: 1. Stroke: - MRI pending - CT head: no acute abnormality - Echo pending - CUS: no significant stenosis. - Will hold Aspirin for now, as patient has bleeding per rectum. Will continue once bleeding has stopped. - Cont. statin - Telemetry monitoring while in patient - PT/OT/ST - DVT Ppx: recommend lovenox 2. Hypertension: - Recommend BP target of <220/120. Can target normotension from tomorrow. - Recommend Gastroenterology consult for bleeding per rectum, which patient states has been ongoing for the past 4-5 weeks. - Will continue to monitor patient. Thank you for allowing me to take part in the care of this patient. Akshat Disla MD Neurology
--- NOTE | 2019-04-30 18:28 | Event Note ---
Date: 04/30/19 Patient had acute rectal bleed while in the MRI will get stat h/h, consult GI, get CT abadomen Vitals stable
--- NOTE | 2019-04-30 18:48 | Magnetic Resonance Report ---
MRA HEAD 04/30/2019 INDICATION / CLINICAL INFORMATION: stroke. Right-sided facial drooping. Left-sided weakness. TECHNIQUE: Routine MRA of the head is performed. 3-D/MIP reformats postprocessed. COMPARISON: None available. FINDINGS: MRA HEAD: Intracranial internal carotid arteries: No significant abnormality. Anterior cerebral arteries: No significant abnormality. Middle cerebral arteries: No significant abnormality. Intracranial vertebral arteries: No significant abnormality. Basilar artery: No significant abnormality. Posterior cerebral arteries: No significant abnormality. IMPRESSION: Negative exam. Signer Name: Rayo Leiva MD Signed: 04/30/2019 6:43 PM Workstation Name: [id number]
--- NOTE | 2019-04-30 18:49 | Magnetic Resonance Report ---
MRA NECK 04/30/2019 INDICATION / CLINICAL INFORMATION: stroke. Right-sided facial weakness. Left-sided weakness. TECHNIQUE: Routine MRA of the neck are performed. 3-D/MIP reformats postprocessed. Percentage stenosis is deter mined by direct quantitative measurements of distal internal carotid artery diameter compared with no rmal reference segments or by criteria similar to NASCET where applicable. COMPARISON: None available. FINDINGS: Unenhanced MR angiographic images of the neck were obtained. 3D/MIP reformats were post-processed. Carotid bifurcations: There is no evidence of carotid bifurcation stenosis. Common carotid arteries: No significant abnormality. Cervical internal carotid arteries: No significant abnormality. Cervical vertebral arteries: No significant abnormality. Visible aortic arch: Not well seen. IMPRESSION: No significant abnormality. Signer Name: Rayo Leiva MD Signed: 04/30/2019 6:44 PM Workstation Name: [id number]
[2019-04-30] MEDS: amLODIPine 10 MG TAB PO SCH (19:21)
[2019-04-30] MEDS: hydrALAZINE 25 MG TAB PO SCH ×2 (19:22→21:06)
--- NOTE | 2019-04-30 20:22 | Magnetic Resonance Report ---
NONENHANCED MR SCAN OF THE BRAIN: INDICATION / CLINICAL INFORMATION: Right-sided facial drooping; left-sided weakness TECHNIQUE: Multiplanar, multisequence MR images of the brain were noncontrast MRI brain normal brain MR obtained . COMPARISON: CT scan obtained on 04/29/2019 FINDINGS: BRAIN / INTRACRANIAL CONTENTS: No acute ischemia, acute hemorrhage, mass effect, midline shift, or hy drocephalus. No chronic infarct or atrophy. Confluent patchy periventricular white matter hyperinten sities seen above atria of the lateral ventricles probably due to cerebral atherosclerosis. Deep vandana spheric white matter lesions ([place] 1) probably due to microvascular faint angiopathy. High convexi ty cortical sulci are well preserved. CRANIOCERVICAL JUNCTION: No significant abnormality. VASCULAR FLOW-VOIDS: No significant abnormality. ORBITS: No significant abnormality of visualized orbits. SINUSES / MASTOIDS: Mucosal thickening is seen posteriorly cells. ADDITIONAL FINDINGS: None. IMPRESSION: 1. I do not see an acute parenchymal lesion in the brain. Signer Name: Eva Lay MD Signed: 04/30/2019 8:18 PM Workstation Name: [id number]
[2019-04-30] MEDS: MORPHINE 2 MG/1 ML INJ IV PRN (21:07)
[2019-04-30 22:06] LABS: Hematocrit 32.4 % (35.5-45.6); Hemoglobin 10.6 gm/dl (11.8-15.2)
[2019-05-01 05:53] LABS: Hemoglobin 9.9 gm/dl (11.8-15.2)
[2019-05-01] MEDS: hydrALAZINE 25 MG TAB PO SCH ×3 (05:59→22:03)
[2019-05-01] MEDS: MORPHINE 2 MG/1 ML INJ IV PRN (06:00)
--- NOTE | 2019-05-01 07:45 | Progress Note ---
Assessment and Plan 1. ESRD: Patient is on maintenance hemodialysis three times a week, TTS schedule. 2. FEN: Hyperkalemia, s/p HD. Metabolic acidosis, on HD. Renal diet. Monitor. 3. Acute CVA. 4. Anemia: POA. Epogen with HD. 5. Uncontrolled HTN: Monitor BP. 6. Penile ulcer. Examination: General appearance: well-developed, well-nourished, appears stated age, not in distress HEENT: ATNC, MENG, vision intact, hearing diminished Neck: neck supple, trachea midline Respiratory: Clear to Ascultation Heart: regular, S1S2, no murmurs Gastrointestinal: soft, normoactive bowel sounds, not tender Integumentary: warm and dry, papular pigmented rash over both LEs Neurologic: no asterixis, alert and oriented x3, CN 3-12 intact, muscle strength appears equal Ext: no edema Hemodialysis access: L FA AVF Subjective Date of service: 05/01/19 Interval history: Patient was seen and examined at the bedside. No new complaint. Objective - Vital Signs Vital signs: Vital Signs - 12hr 04/30/19 04/30/19 04/30/19 20:00 21:06 21:07 Temperature Pulse Rate 88 98 H Pulse Rate [ 83 From Monitor] Respiratory 20 20 Rate Blood Pressure 186/93 O2 Sat by Pulse 100 Oximetry 04/30/19 05/01/19 05/01/19 23:42 03:55 04:00 Temperature 98.4 F 98.0 F Pulse Rate 103 H 88 98 H Pulse Rate [ From Monitor] Respiratory 18 20 Rate Blood Pressure 152/84 171/78 O2 Sat by Pulse 96 99 Oximetry 05/01/19 05/01/19 05/01/19 05:59 06:00 07:31 Temperature 97.9 F Pulse Rate 88 100 H Pulse Rate [ From Monitor] Respiratory 20 18 Rate Blood Pressure 171/78 137/71 O2 Sat by Pulse 98 Oximetry - Lab 05/01/19 05:36 04/30/19 04:40 Most recent lab results Calcium 9.4 mg/dL (8.4-10.2) 04/30/19 04:40 Phosphorus 6.00 mg/dL (2.5-4.5) H 04/30/19 04:40 Medications & Allergies - Medications Allergies/Adverse Reactions: Allergies No Known Allergies Allergy (Unverified 10/14/18 12:07) Home Medications: Home Medications Medication Instructions Recorded Confirmed Last Taken Type Sevelamer Carbonate [Renvela] 800 mg PO TIDWM 04/29/19 04/29/19 1 Day Ago History ~04/28/19 carvediloL [Coreg] 12.5 mg PO BID 04/29/19 04/29/19 1 Day Ago History ~04/28/19 glyBURIDE [Diabeta] 5 mg PO BID 04/29/19 04/29/19 1 Day Ago History ~04/28/19 Active Medications: Generic Name Dose Route Start Last Admin Trade Name Freq PRN Reason Stop Dose Admin Acetaminophen 650 mg 04/29/19 15:45 04/30/19 00:11 Tylenol PO 650 mg Q4H PRN Administration Pain, Mild (1-3) Amlodipine Besylate 10 mg 04/30/19 14:00 04/30/19 19:21 Amlodipine PO 10 mg QDAY ALMITA Administration Atorvastatin Calcium 40 mg 04/29/19 22:00 04/30/19 21:06 Lipitor PO 40 mg QHS ALMITA Administration Bisacodyl 10 mg 04/29/19 15:45 Dulcolax AR QDAY PRN Constipation Carvedilol 12.5 mg 04/29/19 22:00 04/30/19 21:06 Coreg PO 12.5 mg BID ALMITA Administration Epoetin Rudi 10,000 unit 04/30/19 06:25 04/30/19 14:22 Procrit SUB-Q 10,000 unit JACKIE PRN Administration hemodialysis Heparin Sodium (Porcine) 5,000 unit 04/29/19 22:00 04/30/19 23:48 Heparin SUB-Q Not Given Q12HR [facility] Heparin Sodium (Porcine) 2,000 unit 04/30/19 06:25 Heparin 10,000 Units/10 Ml IV JACKIE PRN hemodialysis Hydralazine HCl 20 mg 04/29/19 18:54 04/30/19 21:06 Apresoline IV 20 mg Q4HR PRN Administration HTN SBP>180 Hydralazine HCl 50 mg 04/30/19 14:00 05/01/19 05:59 Apresoline PO 50 mg Q8HR ALMITA Administration Sodium Chloride 100 mls @ 999 mls/hr 04/30/19 06:25 Nacl 0.9% IV JACKIE PRN Hypotension Magnesium Hydroxide 30 ml 04/29/19 15:45 Milk Of Magnesia PO Q4H PRN Constipation Metoclopramide HCl 5 mg 04/29/19 15:45 Reglan PO Q6H PRN Nausea And Vomiting Morphine Sulfate 2 mg 04/30/19 13:08 05/01/19 06:00 Morphine IV 2 mg Q4H PRN Administration Pain, Moderate (4-6) Ondansetron HCl 4 mg 04/29/19 15:45 04/30/19 00:49 Zofran IV 4 mg Q8H PRN Administration Nausea And Vomiting Promethazine HCl 25 mg 04/29/19 15:45 Phenergan AR Q6H PRN Nausea And Vomiting Sevelamer Carbonate 800 mg 04/30/19 08:00 04/30/19 19:22 Renvela PO 800 mg TIDWM ALMITA Administration Sodium Chloride 10 ml 04/29/19 15:45 04/30/19 21:16 Sodium Chloride Flush Syringe 10 Ml IV 10 ml PRN PRN Administration LINE FLUSH
[2019-05-01] MEDS: SEVELAMER CARBONATE 800 MG TAB PO SCH ×2 (08:21→12:38)
--- NOTE | 2019-05-01 09:16 | Gastroenterology Consultation ---
History of Present Illness - Reason for Consult Consult date: 05/01/19 rectal bleeding Requesting physician: ANNE NIX - History of Present Illness Patient is a 63 y/o male with PMH of ESRD on HD, chronic anemia, HTN, and DM who presented to ED on 04/29/19 for evaluation of right sided weakness with facial droop and was admitted for CVA. He developed rectal bleeding yesterday to which GI has been consulted. This morning patient was resting in bed w/o acute d istress. He reports intermittent rectal bleeding for the past few months with 2 episodes yesterday (last episode overnight/early this am per nursing) with maroon/bright red blood and clots. No melena or hematochezia. Recently underwent a colonoscopy at [facility] by Dr. 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 Denies fever, CP, SOB, wt loss, N/V, abdominal pain, diarrhea, or constipation. No hx of PUD or liver disease. No Fhx of colon CA. Past History Past Medical History: other (see HPI) Past Surgical History: Other (dailysis catheter) Social history: single. denies: smoking, alcohol abuse, prescription drug abuse Family history: diabetes, hypertension Medications and Allergies Allergies Allergy/AdvReac Type Severity Reaction Status Date / Time No Known Allergies Allergy Unverified 10/14/18 12:07 Home Medications Medication Instructions Recorded Confirmed Last Taken Type Sevelamer Carbonate [Renvela] 800 mg PO TIDWM 04/29/19 04/29/19 1 Day Ago History ~04/28/19 carvediloL [Coreg] 12.5 mg PO BID 04/29/19 04/29/19 1 Day Ago History ~04/28/19 glyBURIDE [Diabeta] 5 mg PO BID 04/29/19 04/29/19 1 Day Ago History ~04/28/19 Active Meds: Active Medications Acetaminophen (Tylenol) 650 mg PO Q4H PRN PRN Reason: Pain, Mild (1-3) Last Admin: 04/30/19 00:11 Dose: 650 mg Documented by: Amlodipine Besylate (Amlodipine) 10 mg PO QDAY [facility] Last Admin: 04/30/19 19:21 Dose: 10 mg Documented by: Atorvastatin Calcium (Lipitor) 40 mg PO QHS [facility] Last Admin: 04/30/19 21:06 Dose: 40 mg Documented by: Bisacodyl (Dulcolax) 10 mg [place] QDAY PRN PRN Reason: Constipation Carvedilol (Coreg) 12.5 mg PO BID [facility] Last Admin: 04/30/19 21:06 Dose: 12.5 mg Documented by: Epoetin Rudi (Procrit) 10,000 unit SUB-Q JACKIE PRN PRN Reason: hemodialysis Last Admin: 04/30/19 14:22 Dose: 10,000 unit Documented by: Heparin Sodium (Porcine) (Heparin) 5,000 unit SUB-Q Q12HR [facility] Last Admin: 04/30/19 23:48 Dose: Not Given Documented by: Heparin Sodium (Porcine) (Heparin 10,000 Units/10 Ml) 2,000 unit IV JACKIE PRN PRN Reason: hemodialysis Hydralazine HCl (Apresoline) 20 mg IV Q4HR PRN PRN Reason: HTN SBP>180 Last Admin: 04/30/19 21:06 Dose: 20 mg Documented by: Hydralazine HCl (Apresoline) 50 mg PO Q8HR [facility] Last Admin: 05/01/19 05:59 Dose: 50 mg Documented by: Sodium Chloride (Nacl 0.9%) 100 mls @ 999 mls/hr IV JACKIE PRN PRN Reason: Hypotension Magnesium Hydroxide (Milk Of Magnesia) 30 ml PO Q4H PRN PRN Reason: Constipation Metoclopramide HCl (Reglan) 5 mg PO Q6H PRN PRN Reason: Nausea And Vomiting Morphine Sulfate (Morphine) 2 mg IV Q4H PRN PRN Reason: Pain, Moderate (4-6) Last Admin: 05/01/19 06:00 Dose: 2 mg Documented by: Ondansetron HCl (Zofran) 4 mg IV Q8H PRN PRN Reason: Nausea And Vomiting Last Admin: 04/30/19 00:49 Dose: 4 mg Documented by: Promethazine HCl (Phenergan) 25 mg [place] Q6H PRN PRN Reason: Nausea And Vomiting Sevelamer Carbonate (Renvela) 800 mg PO TIDWM [facility] Last Admin: 05/01/19 08:21 Dose: 800 mg Documented by: Sodium Chloride (Sodium Chloride Flush Syringe 10 Ml) 10 ml IV PRN PRN PRN Reason: LINE FLUSH Last Admin: 04/30/19 21:16 Dose: 10 ml Documented by: medications reviewed/updated as required Review of Systems - Review of Systems All systems: negative Gastrointestinal: BRBPR Exam - Constitutional Vital Signs: Temp Pulse Resp BP Pulse Ox 97.9 F 100 H 18 137/71 98 05/01/19 07:31 05/01/19 07:31 05/01/19 07:31 05/01/19 07:31 05/01/19 07:31 General appearance: no acute distress - EENT Eyes: PERRL, EOM intact ENT: hearing intact - Respiratory Respiratory effort: normal - Cardiovascular Rhythm: other (tachycardia) - Gastrointestinal General gastrointestinal: Present: soft, non-tender, non-distended, normal bowel sounds - Neurologic Neurological: alert and oriented x3, right side weakness - Labs CBC & Chem 7: 05/01/19 05:36 04/30/19 04:40 Lab Results: Laboratory Results - last 24 hr 04/30/19 04/30/19 04/30/19 08:09 21:06 21:32 Hgb 10.6 L Hct 32.4 L POC Glucose 214 H Hepatitis A IgM Ab Non-reactive Hep Bs Antigen Non-reactive Hep B Core IgM Ab Non-reactive Hepatitis C Antibody Non-reactive 05/01/19 05/01/19 05:36 07:39 Hgb 9.9 L Hct 30.0 L POC Glucose 119 H Hepatitis A IgM Ab Hep Bs Antigen Hep B Core IgM Ab Hepatitis C Antibody Assessment and Plan 1.GI bleed/rectal bleeding 2.acute on chronic anemia -H/H 9.9/30.0-trending down (baseline Hct ~36 per review of previous labs) -continue to monitor H/H and transfuse as needed -patient reports intermittent rectal bleeding for the last few months with acute onset of 2 episodes yesterday/overnight with maroon/bright red blood. No hematemesis or melena. Denies abd pain or N/V. Tolerating diet. -was recently evaluated for similar symptoms by Dr. 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
[2019-05-01] MEDS: carvediloL 12.5 MG TAB PO SCH ×2 (09:33→22:02)
[2019-05-01] MEDS: amLODIPine 10 MG TAB PO SCH (09:33)
[2019-05-01] MEDS: HEPARIN 5,000 UNIT/1 ML VIAL SUB-Q SCH ×2 (09:34→22:03)
--- NOTE | 2019-05-01 11:20 | Progress Note ---
Assessment and Plan Patient is a 63-year-old man with a history of ESRD on HD, hypertension, diabetes mellitus, who p/w left sided weakness and slurred speech. According to the patient's clinical findings, it is likely that he has had a TIA. Plan: 1. TIA: - MRI brain: no evidence of acute infarct - MRA head: no significant stenosis - CT head: no acute abnormality - Echo EF 45-50%, LA normal size, bubble study negative. - CUS: no significant stenosis. - Will hold Aspirin for now, as patient has bleeding per rectum. Will defer to gastroenterology as to when it is safe to restart Aspirin 81mg daily. - Cont. statin. LDL 118, goal LDL <70. - Telemetry monitoring while in patient - PT/OT/ST - DVT Ppx: recommend lovenox 2. Hypertension: - Recommend BP target of normotension. - Recommend Gastroenterology consult for bleeding per rectum, which patient states has been ongoing for the past 4-5 weeks. Will defer to gastroenterology as to when it is safe to restart Aspirin 81mg daily, give GI bleed. - Will sign off, as neurologic workup is complete, and treatment plan is in place. Recommend f/u with neurology as outpatient in 3-4 weeks. Thank you for allowing me to take part in the care of this patient. Akshat Disla MD Neurology Subjective Date of service: 05/01/19 Principal diagnosis: TIA Interval history: No acute events overnight. Patient feels that weakness has improved today. Objective - Exam Narrative Exam: Patient is awake, alert, oriented x4, follows complex commands. No notable dysarthria. No aphasia. PERRL, EOMI, VFF, b/l intact to LT, tongue midline, no facial weakness. 5/5 in RUE/RLE, 5/5 in LLE/LUE. B/l intact to LT. B/l intact to FTN and HTS. 2+ reflexes throughout. - Vital Sign Vital Signs - 12hr 04/30/19 05/01/19 05/01/19 23:42 03:55 04:00 Temperature 98.4 F 98.0 F Pulse Rate 103 H 88 98 H Respiratory 18 20 Rate Blood Pressure 152/84 171/78 O2 Sat by Pulse 96 99 Oximetry 05/01/19 05/01/19 05/01/19 05:59 06:00 07:31 Temperature 97.9 F Pulse Rate 88 100 H Respiratory 20 18 Rate Blood Pressure 171/78 137/71 O2 Sat by Pulse 98 Oximetry 05/01/19 05/01/19 09:33 10:53 Temperature 98.0 F Pulse Rate 100 H 98 H Respiratory 20 Rate Blood Pressure 137/71 128/67 O2 Sat by Pulse 98 Oximetry - General Apperance Constitutional: comfortable - EENT EENT: ATNC, PERRL, mucous membranes moist, hearing intact, vision intact - Respiratory Respiratory: lungs clear, normal breath sounds - Cardiovascular Cardiovascular: regular rate, normal S1, normal S2 Extremities: no clubbing, cyanosis, no inflammation - Gastrointestinal Gastrointestinal: normoactive bowel sounds, soft, non-tender - Integumentary Integumentary: normal - Musculoskeletal Musculoskeletal: no fluid collection, no pain - Psychiatric Psychiatric: mood/affect appropriate - Laboratory Findings CBC and BMP: 05/01/19 05:36 04/30/19 04:40 Abnormal Lab Findings: Abnormal Labs 04/29/19 04/29/19 04/30/19 12:27 13:10 04:40 RBC 3.59 L Hgb 10.1 L Hct 31.4 L RDW 17.9 H Lymph % (Auto) 10.1 L Tripp % (Auto) 10.4 H Eos % (Auto) 6.4 H Lymph # 0.6 L Seg Neutrophils % 72.2 H Potassium 5.1 H 5.7 H Carbon Dioxide 20 L 17 L BUN 44 H 51 H Creatinine 8.5 H 9.2 H Glucose 198 H 160 H POC Glucose Phosphorus 6.00 H Troponin T 0.269 H* 04/30/19 04/30/19 05/01/19 21:06 21:32 05:36 RBC Hgb 10.6 L 9.9 L Hct 32.4 L 30.0 L RDW Lymph % (Auto) Tripp % (Auto) Eos % (Auto) Lymph # Seg Neutrophils % Potassium Carbon Dioxide BUN Creatinine Glucose POC Glucose 214 H Phosphorus Troponin T 05/01/19 07:39 RBC Hgb Hct RDW Lymph % (Auto) Tripp % (Auto) Eos % (Auto) Lymph # Seg Neutrophils % Potassium Carbon Dioxide BUN Creatinine Glucose POC Glucose 119 H Phosphorus Troponin T
[2019-05-01] MEDS: PANTOPRAZOLE 40 MG INJ IV SCH ×2 (12:39→22:21)
[2019-05-01 13:55] LABS: Hematocrit 29.8 % (35.5-45.6); Mean Corpuscular HGB Conc 33 % (32-34); Mean Corpuscular Volume 88 fl (84-94); Platelet Count 217 K/mm3 (140-440); Red Blood Count 3.38 M/mm3 (3.65-5.03); Red Cell Distribution Width 17.9 % (13.2-15.2)
[2019-05-01 14:16] LABS: Calcium 9.5 mg/dL (8.4-10.2)
--- NOTE | 2019-05-01 15:40 | Progress Note ---
Assessment and Plan / TIA - MRI brain: no evidence of acute infarct, MRA head: no significant stenosis - CT head: no acute abnormality - Echo EF 45-50%, CUS: no significant stenosis. - Will hold Aspirin for now, as patient has bleeding per rectum - Cont. statin. LDL 118, goal LDL <70. - Telemetry monitoring while in patient - PT/OT/ST ordered / Hypertensive urgency, malignant Monitor BP q shift, IV hydralazine prn, continue medical management. /Acute rectal bleeding - will cont to check h/h, consulted GI, hold any aspirin and heparin product - plan for CT scan today and EGD tomorrow am /Anemia, likley from acute on chronic blood loss - will cont to monitor H/H /DM type 2 ADA diet, insulin, accu check, hypoglycemia protocol / End stage renal disease on dialysis Nephrology consulted in ED, dialysis as per renal team, strict I/O, monitor uop q shift, avoid nephrotoxic agents /Hyperkalemia, k improved after HD, cont to monitor / DVT prophylaxis SCD to BLE while in bed Subjective Date of service: 05/01/19 Principal diagnosis: TIA Interval history: Patient seen and examined no further rectal bleeding since yesterday vitals stable Objective - Exam Narrative Exam: General appearance: Present: no acute distress, well-nourished - EENT Eyes: PERRL, EOM intact ENT: hearing intact, clear oral mucosa Ears: bilateral: normal - Neck Neck: supple, normal ROM - Respiratory Respiratory effort: normal Respiratory: bilateral: CTA - Cardiovascular Rhythm: regular Heart Sounds: Present: S1 & S2. Absent: gallop, rub Extremities: pulses intact, No edema, normal color, Full ROM - Gastrointestinal General gastrointestinal: Present: soft, non-tender, non-distended, normal bowel sounds - Integumentary Integumentary: clear, warm, dry - Musculoskeletal Musculoskeletal: 1, strength equal bilaterally - Neurologic Neurologic: moves all extremities - Psychiatric Psychiatric: memory intact, appropriate mood/affect, intact judgment & insight - Constitutional Vitals: Vital Signs - 12hr 05/01/19 05/01/19 05/01/19 03:55 04:00 05:59 Temperature 98.0 F Pulse Rate 88 98 H 88 Respiratory 20 Rate Blood Pressure 171/78 171/78 O2 Sat by Pulse 99 Oximetry 05/01/19 05/01/19 05/01/19 06:00 07:31 09:33 Temperature 97.9 F Pulse Rate 100 H 100 H Respiratory 20 18 Rate Blood Pressure 137/71 137/71 O2 Sat by Pulse 98 Oximetry 05/01/19 05/01/19 10:53 12:00 Temperature 98.0 F Pulse Rate 98 H 94 H Respiratory 20 Rate Blood Pressure 128/67 O2 Sat by Pulse 98 Oximetry - Labs CBC & Chem 7: 05/02/19 09:48 05/02/19 09:48 Labs: Abnormal lab results 04/30/19 04/30/19 05/01/19 Range/Units 21:06 21:32 05:36 RBC (3.65-5.03) M/mm3 Hgb 10.6 L 9.9 L (11.8-15.2) gm/dl Hct 32.4 L 30.0 L (35.5-45.6) % RDW (13.2-15.2) % Sodium (137-145) mmol/L Potassium (3.6-5.0) mmol/L Chloride (98-107) mmol/L Carbon Dioxide (22-30) mmol/L BUN (9-20) mg/dL Creatinine (0.8-1.5) mg/dL Glucose (75-100) mg/dL POC Glucose 214 H (70-105) 05/01/19 05/01/19 05/01/19 Range/Units 07:39 11:03 13:21 RBC 3.38 L (3.65-5.03) M/mm3 Hgb 10.0 L (11.8-15.2) gm/dl Hct 29.8 L (35.5-45.6) % RDW 17.9 H (13.2-15.2) % Sodium (137-145) mmol/L Potassium (3.6-5.0) mmol/L Chloride (98-107) mmol/L Carbon Dioxide (22-30) mmol/L BUN (9-20) mg/dL Creatinine (0.8-1.5) mg/dL Glucose (75-100) mg/dL POC Glucose 119 H 207 H (70-105) 05/01/19 Range/Units 13:21 RBC (3.65-5.03) M/mm3 Hgb (11.8-15.2) gm/dl Hct (35.5-45.6) % RDW (13.2-15.2) % Sodium 134 L (137-145) mmol/L Potassium 5.2 H (3.6-5.0) mmol/L Chloride 97.6 L (98-107) mmol/L Carbon Dioxide 21 L (22-30) mmol/L BUN 37 H (9-20) mg/dL Creatinine 7.6 H (0.8-1.5) mg/dL Glucose 172 H (75-100) mg/dL POC Glucose (70-105)
--- NOTE | 2019-05-01 16:03 | Nuclear Medicine Report ---
NM GI bleeding scan INDICATION / CLINICAL INFORMATION: rectal bleeding. TRACER: Technetium 99m UltraTag 20 mCi IV injection. COMPARISON: No relevant prior imaging study available. FINDINGS: Following injection of the above tracer, there is tracer uptake which he relates far laterally at the left abdomen at the level of the lower aorta. This area does not move during the course of the exam and appears to lie at the level of the peritoneum No rectal bleeding identified. IMPRESSION: Unusual uptake in the region of the peritoneal reflection at the left lateral abdominal wall. Presuma gary, this represents a bleeding site. This is not appear to be colonic in origin. Correlation with a natomical imaging such as CT would BE helpful. Signer Name: Trevor Cagle MD Signed: 05/01/2019 3:58 PM Workstation Name: [id number]
[2019-05-01 23:28] LABS: Hematocrit 30.9 % (35.5-45.6); Hemoglobin 10.1 gm/dl (11.8-15.2)
[2019-05-02] MEDS: hydrALAZINE 25 MG TAB PO SCH ×3 (05:22→23:09)
[2019-05-02] MEDS: MORPHINE 2 MG/1 ML INJ IV PRN ×3 (05:25→17:45)
[2019-05-02] MEDS: PANTOPRAZOLE 40 MG INJ IV SCH ×2 (09:48→23:11)
[2019-05-02] MEDS: HEPARIN 5,000 UNIT/1 ML VIAL SUB-Q SCH ×2 (09:49→23:11)
[2019-05-02] MEDS: SEVELAMER CARBONATE 800 MG TAB PO SCH ×4 (09:49→17:45)
[2019-05-02] MEDS: amLODIPine 10 MG TAB PO SCH (09:49)
[2019-05-02] MEDS: carvediloL 12.5 MG TAB PO SCH ×2 (09:50→23:10)
--- NOTE | 2019-05-02 09:51 | Progress Note ---
Assessment and Plan 1. ESRD: Patient is on maintenance hemodialysis three times a week, TTS schedule. 2. FEN: Hyperkalemia, HD today. Metabolic acidosis, on HD. Renal diet. Monitor. 3. Acute CVA. 4. Anemia: POA. Epogen with HD. 5. Uncontrolled HTN: Monitor BP. 6. Penile ulcer. Examination: General appearance: well-developed, well-nourished, appears stated age, not in distress HEENT: ATNC, MENG, vision intact, hearing diminished Neck: neck supple, trachea midline Respiratory: Clear to Ascultation Heart: regular, S1S2, no murmurs Gastrointestinal: soft, normoactive bowel sounds, not tender Integumentary: warm and dry, papular pigmented rash over both LEs Neurologic: no asterixis, alert and oriented x3, CN 3-12 intact, muscle strength appears equal Ext: no edema Hemodialysis access: L FA AVF Subjective Date of service: 05/02/19 Principal diagnosis: TIA Interval history: Patient was seen and examined at the bedside. No new complaint. Objective - Vital Signs Vital signs: Vital Signs - 12hr 05/01/19 05/01/19 05/01/19 22:02 22:03 23:50 Temperature 98.5 F Pulse Rate 90 90 86 Pulse Rate [ From Monitor] Respiratory 20 Rate Blood Pressure 113/56 113/56 145/75 O2 Sat by Pulse 98 Oximetry 05/02/19 05/02/19 05/02/19 02:00 03:29 04:00 Temperature 98.7 F Pulse Rate 83 86 Pulse Rate [ 87 From Monitor] Respiratory 20 18 Rate Blood Pressure 139/77 O2 Sat by Pulse 95 97 Oximetry 05/02/19 05/02/19 05/02/19 05:22 05:25 08:18 Temperature 97.4 F L Pulse Rate 86 90 Pulse Rate [ From Monitor] Respiratory 18 18 Rate Blood Pressure 145/75 110/55 O2 Sat by Pulse 97 Oximetry - Lab 05/02/19 09:48 05/02/19 09:48 Most recent lab results Calcium 9.5 mg/dL (8.4-10.2) 05/01/19 13:21 Phosphorus 6.00 mg/dL (2.5-4.5) H 04/30/19 04:40 Medications & Allergies - Medications Allergies/Adverse Reactions: Allergies No Known Allergies Allergy (Unverified 10/14/18 12:07) Home Medications: Home Medications Medication Instructions Recorded Confirmed Last Taken Type Sevelamer Carbonate [Renvela] 800 mg PO TIDWM 04/29/19 04/29/19 1 Day Ago History ~04/28/19 carvediloL [Coreg] 12.5 mg PO BID 04/29/19 04/29/19 1 Day Ago History ~04/28/19 glyBURIDE [Diabeta] 5 mg PO BID 04/29/19 04/29/19 1 Day Ago History ~04/28/19 AtorvaSTATin [Lipitor] 40 mg PO QHS #30 tablet 05/02/19 Unknown Rx amLODIPine 10 mg PO QDAY #30 tablet 05/02/19 Unknown Rx Active Medications: Generic Name Dose Route Start Last Admin Trade Name Freq PRN Reason Stop Dose Admin Acetaminophen 650 mg 04/29/19 15:45 04/30/19 00:11 Tylenol PO 650 mg Q4H PRN Administration Pain, Mild (1-3) Amlodipine Besylate 10 mg 04/30/19 14:00 05/01/19 09:33 Amlodipine PO 10 mg QDAY ALMITA Administration Atorvastatin Calcium 40 mg 04/29/19 22:00 05/01/19 22:02 Lipitor PO 40 mg QHS ALMITA Administration Bisacodyl 10 mg 04/29/19 15:45 Dulcolax VA QDAY PRN Constipation Carvedilol 12.5 mg 04/29/19 22:00 05/01/19 22:02 Coreg PO 12.5 mg BID ALMITA Administration Epoetin Rudi 10,000 unit 04/30/19 06:25 04/30/19 14:22 Procrit SUB-Q 10,000 unit JACKIE PRN Administration hemodialysis Heparin Sodium (Porcine) 5,000 unit 04/29/19 22:00 05/01/19 22:03 Heparin SUB-Q Not Given Q12HR [facility] Heparin Sodium (Porcine) 2,000 unit 04/30/19 06:25 Heparin 10,000 Units/10 Ml IV JACKIE PRN hemodialysis Hydralazine HCl 20 mg 04/29/19 18:54 04/30/19 21:06 Apresoline IV 20 mg Q4HR PRN Administration HTN SBP>180 Hydralazine HCl 50 mg 04/30/19 14:00 05/02/19 05:22 Apresoline PO 50 mg Q8HR ALMITA Administration Sodium Chloride 100 mls @ 999 mls/hr 04/30/19 06:25 Nacl 0.9% IV JACKIE PRN Hypotension Magnesium Hydroxide 30 ml 04/29/19 15:45 Milk Of Magnesia PO Q4H PRN Constipation Metoclopramide HCl 5 mg 04/29/19 15:45 Reglan PO Q6H PRN Nausea And Vomiting Morphine Sulfate 2 mg 04/30/19 13:08 05/02/19 05:25 Morphine IV 2 mg Q4H PRN Administration Pain, Moderate (4-6) Ondansetron HCl 4 mg 04/29/19 15:45 04/30/19 00:49 Zofran IV 4 mg Q8H PRN Administration Nausea And Vomiting Pantoprazole Sodium 40 mg 05/01/19 10:00 05/01/19 22:21 Protonix IV 40 mg BID ALMITA Administration Promethazine HCl 25 mg 04/29/19 15:45 Phenergan VA Q6H PRN Nausea And Vomiting Sevelamer Carbonate 800 mg 04/30/19 08:00 05/01/19 12:38 Renvela PO 800 mg TIDWM ALMITA Administration Sodium Chloride 10 ml 04/29/19 15:45 05/02/19 05:26 Sodium Chloride Flush Syringe 10 Ml IV 10 ml PRN PRN Administration LINE FLUSH
[2019-05-02 10:18] LABS: Hematocrit 30.2 % (35.5-45.6); Hemoglobin 10.2 gm/dl (11.8-15.2); Mean Corpuscular HGB Conc 34 % (32-34); Mean Corpuscular Volume 87 fl (84-94); Platelet Count 234 K/mm3 (140-440); Red Blood Count 3.46 M/mm3 (3.65-5.03); Red Cell Distribution Width 17.9 % (13.2-15.2)
[2019-05-02 10:35] LABS: Calcium 9.6 mg/dL (8.4-10.2)
[2019-05-02] MEDS ORDERED: SODIUM CHLORIDE*PRIMING MACHINE ONLY FOR DIALYSIS MC ONE (11:43)
[2019-05-02] MEDS: EPOETIN ALFA 10,000 UNIT/1 ML INJ SUB-Q PRN (12:27)
[2019-05-02] MEDS ORDERED: SODIUM CHLORIDE 0.9% 1000 ML 1,000 ML IV SCH (13:00)
--- NOTE | 2019-05-02 13:34 | Discharge Summary ---
Providers - Providers Date of Admission: 04/29/19 15:45 Date of discharge: 05/02/19 Attending physician: ANNE NIX 04/29/19 14:33 Consult to Physician [CONS] Stat Comment: Consulting Provider: JEFFRY GONZALES Physician Instructions: Reason For Exam: ESRD will need dialysis 04/29/19 15:45 Occupational Therapy Evaluate and Treat [CONS] Routine Comment: Reason For Exam: Neuro deficits Physical Therapy Evaluation and Treat [CONS] Routine Comment: Reason For Exam: Neuro deficits 04/30/19 13:14 Consult to Physician [CONS] Routine Comment: Consulting Provider: ALFONZO WATERS Physician Instructions: Reason For Exam: possible CVA 04/30/19 18:25 Consult to Physician [CONS] Routine Comment: Consulting Provider: SARI AGUERO Physician Instructions: Reason For Exam: acute rectal bleeding 04/30/19 22:45 Consult to Wound/ET Nurse [CONS] Routine Reason For Exam: wound eval Primary care physician: JAIR BERRY Hospitalization Condition: Stable Pertinent studies: Head CT CXR Carotid doppler Brain MRI A Head/neck MRA GI bleeding scan 2d echocardiogram Hospital course: Patient is a 63 y/o male with PMH of ESRD on HD, chronic anemia, HTN, and DM who presented to ED on 04/29/19 for evaluation of right sided weakness with facial droop and was admitted for CVA. He then developed rectal bleeding during MRI, monitored h/h, GI was consulted. Recently he underwent a colonoscopy at [facility] by Dr. 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 Bleeding scan was negative for active hemorrhage. Planned EGD/Flex to determine suitability for anticoagulation after TIA. Discharge diagnosis and mx: / TIA - MRI brain: no evidence of acute infarct, MRA head: no significant stenosis - CT head: no acute abnormality - Echo EF 45-50%, CUS: no significant stenosis. - Will hold Aspirin for now, as patient has bleeding per rectum - Cont. statin. LDL 118, goal LDL <70. - Telemetry monitoring while in patient - PT/OT/ST ordered / Hypertensive urgency, malignant Monitor BP q shift, IV hydralazine prn, continue medical management. /Acute rectal bleeding - will cont to check h/h, consulted GI, hold any aspirin and heparin product - plan for CT scan today and EGD tomorrow am /Anemia, likley from acute on chronic blood loss - will cont to monitor H/H /DM type 2 ADA diet, insulin, accu check, hypoglycemia protocol / End stage renal disease on dialysis Nephrology consulted in ED, dialysis as per renal team, strict I/O, monitor uop q shift, avoid nephrotoxic agents /Hyperkalemia, k improved after HD, cont to monitor /Elevated troponin, likely from ESRD, patient denies any chest pain / DVT prophylaxis SCD to BLE while in bed Physical exam; General appearance: Present: no acute distress, well-nourished - EENT Eyes: PERRL, EOM intact ENT: hearing intact, clear oral mucosa Ears: bilateral: normal - Neck Neck: supple, normal ROM - Respiratory Respiratory effort: normal Respiratory: bilateral: CTA - Cardiovascular Rhythm: regular Heart Sounds: Present: S1 & S2. Absent: gallop, rub Extremities: pulses intact, No edema, normal color, Full ROM - Gastrointestinal General gastrointestinal: Present: soft, non-tender, non-distended, normal bowel sounds - Integumentary Integumentary: clear, warm, dry - Musculoskeletal Musculoskeletal: 1, strength equal bilaterally - Neurologic Neurologic: moves all extremities - Psychiatric Psychiatric: memory intact, appropriate mood/affect, intact judgment & insight Disposition: DC-01 TO HOME OR SELFCARE Time spent for discharge: 34 minutes Core Measure Documentation - Palliative Care Palliative Care/ Comfort Measures: Not Applicable - Core Measures Any of the following diagnoses?: stroke - Stroke Discharge Requirements Statin for LDL = or >70 mg/dl on DC: Yes Anticoag for atrial fib/atrial flutter: Not Applicable Antithrombotic for ischemic stroke: Yes Exam - Constitutional Vitals: Temp Pulse Resp BP Pulse Ox 97.8 F 83 18 151/83 97 05/02/19 10:06 05/02/19 13:15 05/02/19 10:06 05/02/19 13:15 05/02/19 08:18 Plan Activity: advance as tolerated Weight Bearing Status: Weight Bear as Tolerated Diet: diabetic, renal Special Instructions: restrict fluid intake to (1.2 L per day) Additional Instructions: f/u with PCP in one week Follow up with: PRIMARY CAREMD [Referring] - 3-5 Days Prescriptions: AtorvaSTATin [Lipitor] 40 mg PO QHS #30 tablet amLODIPine 10 mg PO QDAY #30 tablet
--- NOTE | 2019-05-02 13:44 | Progress Note ---
Assessment and Plan / TIA - MRI brain: no evidence of acute infarct, MRA head: no significant stenosis - CT head: no acute abnormality - Echo EF 45-50%, CUS: no significant stenosis. - Will hold Aspirin for now, as patient has bleeding per rectum - Cont. statin. LDL 118, goal LDL <70. - Telemetry monitoring while in patient - PT/OT/ST ordered - need acute rehab / Hypertensive urgency, malignant Monitor BP q shift, IV hydralazine prn, continue medical management. /Acute rectal bleeding - will cont to check h/h, consulted GI, hold any aspirin and heparin product - s/p bleeding scan - was normal - horn for sigmoidscopy and EGD today /Anemia, graceley from acute on chronic blood loss - will cont to monitor H/H /DM type 2 ADA diet, insulin, accu check, hypoglycemia protocol / End stage renal disease on dialysis Nephrology consulted in ED, dialysis as per renal team, strict I/O, monitor uop q shift, avoid nephrotoxic agents /Hyperkalemia, k improved after HD, cont to monitor / DVT prophylaxis SCD to BLE while in bed Disposition: need acute rehab Subjective Date of service: 05/02/19 Principal diagnosis: TIA Objective - Constitutional Vitals: Vital Signs - 12hr 05/02/19 05/02/19 05/02/19 02:00 03:29 04:00 Temperature 98.7 F Pulse Rate 83 86 Pulse Rate [ 87 From Monitor] Respiratory 20 18 Rate Blood Pressure 139/77 O2 Sat by Pulse 95 97 Oximetry 05/02/19 05/02/19 05/02/19 05:22 05:25 08:18 Temperature 97.4 F L Pulse Rate 86 90 Pulse Rate [ From Monitor] Respiratory 18 18 Rate Blood Pressure 145/75 110/55 O2 Sat by Pulse 97 Oximetry 05/02/19 05/02/19 05/02/19 09:48 09:49 09:50 Temperature Pulse Rate 90 90 Pulse Rate [ From Monitor] Respiratory 20 Rate Blood Pressure 110/55 110/55 O2 Sat by Pulse Oximetry 05/02/19 05/02/19 05/02/19 10:06 10:15 10:30 Temperature 97.8 F Pulse Rate 76 76 75 Pulse Rate [ From Monitor] Respiratory 18 Rate Blood Pressure 154/75 154/75 151/74 O2 Sat by Pulse Oximetry 05/02/19 05/02/19 05/02/19 10:45 11:00 11:15 Temperature Pulse Rate 76 77 77 Pulse Rate [ From Monitor] Respiratory Rate Blood Pressure 157/79 142/76 148/75 O2 Sat by Pulse Oximetry 05/02/19 05/02/19 05/02/19 11:30 11:45 12:00 Temperature Pulse Rate 76 81 81 Pulse Rate [ From Monitor] Respiratory Rate Blood Pressure 132/70 149/76 133/65 O2 Sat by Pulse Oximetry 05/02/19 05/02/19 05/02/19 12:15 12:30 12:45 Temperature Pulse Rate 87 82 77 Pulse Rate [ From Monitor] Respiratory Rate Blood Pressure 143/78 151/76 166/77 O2 Sat by Pulse Oximetry 05/02/19 05/02/19 05/02/19 13:00 13:15 13:20 Temperature 97.8 F Pulse Rate 82 83 83 Pulse Rate [ From Monitor] Respiratory 16 Rate Blood Pressure 153/74 151/83 163/74 O2 Sat by Pulse Oximetry - Labs CBC & Chem 7: 05/02/19 09:48 05/02/19 09:48 Labs: Abnormal lab results 05/01/19 05/01/19 05/01/19 Range/Units 13:21 13:21 22:42 RBC 3.38 L (3.65-5.03) M/mm3 Hgb 10.0 L 10.1 L (11.8-15.2) gm/dl Hct 29.8 L 30.9 L (35.5-45.6) % RDW 17.9 H (13.2-15.2) % Sodium 134 L (137-145) mmol/L Potassium 5.2 H (3.6-5.0) mmol/L Chloride 97.6 L (98-107) mmol/L Carbon Dioxide 21 L (22-30) mmol/L BUN 37 H (9-20) mg/dL Creatinine 7.6 H (0.8-1.5) mg/dL Glucose 172 H (75-100) mg/dL 05/02/19 05/02/19 Range/Units 09:48 09:48 RBC 3.46 L (3.65-5.03) M/mm3 Hgb 10.2 L (11.8-15.2) gm/dl Hct 30.2 L (35.5-45.6) % RDW 17.9 H (13.2-15.2) % Sodium 132 L (137-145) mmol/L Potassium 5.4 H (3.6-5.0) mmol/L Chloride 93.0 L (98-107) mmol/L Carbon Dioxide 19 L (22-30) mmol/L BUN 49 H (9-20) mg/dL Creatinine 9.2 H (0.8-1.5) mg/dL Glucose (75-100) mg/dL
[2019-05-02] MEDS ORDERED: SODIUM CHLORIDE 0.9% 1000 ML 1,000 ML ONE (14:15)
[2019-05-02] MEDS ORDERED: PROPOFOL 200 MG/20 ML VIAL IV ONE (14:27)
--- NOTE | 2019-05-02 14:31 | Anesthesia Day of Surgery ---
Anesthesia Day of Surgery - Day of Surgery Patient Examined: Yes Patient H&P Reviewed: Yes Patient is NPO: Yes Beta Blockers: Yes
--- NOTE | 2019-05-02 14:31 | Anesthesia Consultation ---
Anesthesia Consult and Med Hx Date of service: 05/02/19 - Airway Anesthetic Teeth Evaluation: Good, Poor ROM Head & Neck: Inadequate Mental/Hyoid Distance: Adequate Mallampati Class: Class III Intubation Access Assessment: Possibly Difficult - Pre-Operative Health Status ASA Pre-Surgery Classification: ASA3 Proposed Anesthetic Plan: MAC - Cardiovascular System Hx Hypertension: Yes - Central Nervous System CVA: Yes (Right hemiparesis) Hx Back Pain: Yes (Lumbar disc disease) - Endocrine Hx Renal Disease: Yes (ESRD dialysis , , Mon) Hx End Stage Renal Disease: Yes Hx Non-Insulin Dependent Diabetes: Yes - Hematic Hx Anemia: Yes
--- NOTE | 2019-05-02 14:53 | Post Operative Note ---
Pre-op diagnosis: Acute blood loss anemia Post-op diagnosis: other (gastritis, duodenitis, proctitis) Findings: 1. Mild erosive gastritis/duodenitis - Cold bx of antrum 2. Small hiatal hernia 3. Brown stool to lower sigmoid (procedure stopped) 4. Trace rectal bleeding with hypervascularity but no ulcer seen - Stercoral proctitis versus prior radiation damage (?hx of prostate cancer) suspected Procedure: EGD with cold biopsy; Flex sig to sigmoid colon Anesthesia: MAC Surgeon: SARI AGUERO Estimated blood loss: minimal Pathology: list (1. Gastric antrum) Specimen disposition: to lab Condition: stable Disposition: floor (Recs: 1. Daily protonix. 2. Daily Sennakot for chronic constipation. 3. OK to resume ASA 81mg/day for recent TIA since bleeding is mild. 4. If bleeding/anemia worsens, will need repeat colonoscopy with possible APC to treat hypervascular lesions.)
--- NOTE | 2019-05-02 14:59 | Post Anesthesia Evaluation ---
- Post Anesthesia Evaluation Patient Participated: Yes Airway Patent: Yes Stable Respiratory Function: Yes Nausea/Vomiting: No Temp > 96.8F: Yes Pain Manageable: Yes Adequeate Hydration: Yes Anesthesia Complications: No
--- NOTE | 2019-05-02 15:15 | Operative Report ---
PROCEDURE PERFORMED: Esophagogastroduodenoscopy with cold biopsy as well as flexible sigmoidoscopy to the sigmoid colon. PREOPERATIVE DIAGNOSIS: Acute blood loss anemia. POSTOPERATIVE DIAGNOSES: Gastritis, duodenitis, proctitis. ENDOSCOPIST: Woo Byrne MD INSTRUMENT: Olympus video endoscope. MEDICATIONS: MAC anesthesia by Anesthesia Services. COMPLICATIONS: No apparent complications. ESTIMATED BLOOD LOSS: Minimal. SPECIMENS: Gastric antrum. IMPLANTS: None. ASSISTANTS: None. CONDITION AT COMPLETION: Stable. TECHNIQUE: The patient was informed of the risks and benefits of the procedure. He signed the informed consent to proceed. He was placed in left lateral decubitus position. The above sedative medications were given. His vital signs remained stable throughout the procedure. The instrument was advanced from the mouth to the second portion of the duodenum under direct visualization. At that point, the bowel was insufflated and the endoscope was slowly withdrawn. The bed was then rotated and the colonoscope was advanced from the anus to the midsigmoid colon, identified by palpation and landmarks, under direct visualization. At that point, the bowel was insufflated and the endoscope was slowly withdrawn. The quality of preparation was poor with solid stool throughout the lower GI tract. FINDINGS: 1. Mild erosive gastritis and duodenitis in the antrum, first portion of the duodenum, and the second portion of the duodenum. A. Cold biopsies taken of the antrum. 2. Small hiatal hernia. 3. Otherwise, normal upper gastrointestinal tract. 4. Brown stool with no evidence of active blood loss in the lower and mid sigmoid colon (procedure aborted in the mid sigmoid colon due to poor preparation). 5. Trace rectal bleeding noted in the rectum with hypervascularity. A. 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 RECOMMENDATIONS: 1. Daily Protonix therapy. 2. Daily Senokot for chronic constipation. 3. Okay to resume aspirin 81 mg per day for his recent TIA since his bleeding is mild. 4. If the bleeding and/or anemia worsens, he will need a repeat colonoscopy with APC to treat the hypervascular lesions in the colon. JOB# [id number] E/NTS
--- NOTE | 2019-05-02 16:38 | Progress Note ---
Assessment and Plan /Acute rectal bleeding - will cont to check h/h, consulted GI, held any aspirin and heparin product - s/p bleeding scan - was normal - s/p sigmoidscopy and EGD today with following findings 1. Mild erosive gastritis/duodenitis 2. Small hiatal hernia 3. Brown stool to lower sigmoid (procedure stopped) 4. 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 Daily protonix. 2. Daily Sennakot for chronic constipation. 3. OK to resume ASA 81mg/day for recent TIA since bleeding is mild. 4. If bleeding/anemia worsens, will need repeat colonoscopy with possible APC to treat hypervascular lesions.) / TIA - MRI brain: no evidence of acute infarct, MRA head: no significant stenosis - CT head: no acute abnormality - Echo EF 45-50%, CUS: no significant stenosis. - Will hold Aspirin for now, as patient has bleeding per rectum - Cont. statin. LDL 118, goal LDL <70. - Telemetry monitoring while in patient - PT/OT/ST ordered - need acute rehab / Hypertensive urgency, malignant Monitor BP q shift, IV hydralazine prn, continue medical management. /Anemia, likley from acute on chronic blood loss - will cont to monitor H/H /DM type 2 ADA diet, insulin, accu check, hypoglycemia protocol / End stage renal disease on dialysis Nephrology consulted in ED, dialysis as per renal team, strict I/O, monitor uop q shift, avoid nephrotoxic agents /Hyperkalemia, k improved after HD, cont to monitor / DVT prophylaxis SCD to BLE while in bed Disposition: need acute rehab Subjective Date of service: 05/02/19 Principal diagnosis: TIA Interval history: Patient seen and examined states had little rectal bleed during HD, vitals stable Objective - Exam Narrative Exam: General appearance: Present: no acute distress, well-nourished - EENT Eyes: PERRL, EOM intact ENT: hearing intact, clear oral mucosa Ears: bilateral: normal - Neck Neck: supple, normal ROM - Respiratory Respiratory effort: normal Respiratory: bilateral: CTA - Cardiovascular Rhythm: regular Heart Sounds: Present: S1 & S2. Absent: gallop, rub Extremities: pulses intact, No edema, normal color, Full ROM - Gastrointestinal General gastrointestinal: Present: soft, non-tender, non-distended, normal bowel sounds - Integumentary Integumentary: clear, warm, dry - Musculoskeletal Musculoskeletal: 1, strength equal bilaterally - Neurologic Neurologic: moves all extremities - Psychiatric Psychiatric: memory intact, appropriate mood/affect, intact judgment & insight - Constitutional Vitals: Vital Signs - 12hr 05/02/19 05/02/19 05/02/19 05:22 05:25 08:18 Temperature 97.4 F L Pulse Rate 86 90 Respiratory 18 18 Rate Blood Pressure 145/75 110/55 O2 Sat by Pulse 97 Oximetry 05/02/19 05/02/19 05/02/19 09:48 09:49 09:50 Temperature Pulse Rate 90 90 Respiratory 20 Rate Blood Pressure 110/55 110/55 O2 Sat by Pulse Oximetry 05/02/19 05/02/19 05/02/19 10:06 10:15 10:30 Temperature 97.8 F Pulse Rate 76 76 75 Respiratory 18 Rate Blood Pressure 154/75 154/75 151/74 O2 Sat by Pulse Oximetry 05/02/19 05/02/19 05/02/19 10:45 11:00 11:15 Temperature Pulse Rate 76 77 77 Respiratory Rate Blood Pressure 157/79 142/76 148/75 O2 Sat by Pulse Oximetry 05/02/19 05/02/19 05/02/19 11:30 11:45 12:00 Temperature Pulse Rate 76 81 81 Respiratory Rate Blood Pressure 132/70 149/76 133/65 O2 Sat by Pulse Oximetry 05/02/19 05/02/19 05/02/19 12:15 12:30 12:45 Temperature Pulse Rate 87 82 77 Respiratory Rate Blood Pressure 143/78 151/76 166/77 O2 Sat by Pulse Oximetry 05/02/19 05/02/19 05/02/19 13:00 13:15 13:20 Temperature 97.8 F Pulse Rate 82 83 83 Respiratory 16 Rate Blood Pressure 153/74 151/83 163/74 O2 Sat by Pulse Oximetry 05/02/19 05/02/19 05/02/19 14:10 14:15 14:50 Temperature 98.3 F 98.3 F 98.0 F Pulse Rate 88 88 87 Respiratory 24 24 15 Rate Blood Pressure 147/66 147/66 137/69 O2 Sat by Pulse 98 98 98 Oximetry 05/02/19 15:05 Temperature Pulse Rate 83 Respiratory 12 Rate Blood Pressure 159/70 O2 Sat by Pulse 100 Oximetry - Labs CBC & Chem 7: 05/03/19 05:27 05/03/19 05:27 Labs: Abnormal lab results 05/01/19 05/02/19 05/02/19 Range/Units 22:42 09:48 09:48 RBC 3.46 L (3.65-5.03) M/mm3 Hgb 10.1 L 10.2 L (11.8-15.2) gm/dl Hct 30.9 L 30.2 L (35.5-45.6) % RDW 17.9 H (13.2-15.2) % Sodium 132 L (137-145) mmol/L Potassium 5.4 H (3.6-5.0) mmol/L Chloride 93.0 L (98-107) mmol/L Carbon Dioxide 19 L (22-30) mmol/L BUN 49 H (9-20) mg/dL Creatinine 9.2 H (0.8-1.5) mg/dL
[2019-05-02] MEDS: ASPIRIN 81 MG TAB CHEW PO SCH (17:45)
[2019-05-02] MEDS ORDERED: SENNOSIDES/DOCUSATE SODIUM 8.6/50 MG TAB PO SCH (22:00)
[2019-05-02] MEDS: POLYETHYLENE GLYCOL 3350 17 GM POWDER PO SCH (23:11)
[2019-05-03] MEDS: hydrALAZINE 25 MG TAB PO SCH ×2 (06:05→14:55)
[2019-05-03 06:50] LABS: Hematocrit 27.2 % (35.5-45.6); Hemoglobin 9.3 gm/dl (11.8-15.2)
[2019-05-03 06:57] LABS: Calcium 8.9 mg/dL (8.4-10.2)
[2019-05-03] MEDS: PANTOPRAZOLE 40 MG INJ IV SCH (10:19)
[2019-05-03] MEDS: ASPIRIN 81 MG TAB CHEW PO SCH (10:19)
[2019-05-03] MEDS: carvediloL 12.5 MG TAB PO SCH (10:20)
[2019-05-03] MEDS: SEVELAMER CARBONATE 800 MG TAB PO SCH ×3 (10:20→17:45)
[2019-05-03] MEDS: amLODIPine 10 MG TAB PO SCH (10:20)
[2019-05-03] MEDS: HEPARIN 5,000 UNIT/1 ML VIAL SUB-Q SCH (10:20)
[2019-05-03] MEDS: POLYETHYLENE GLYCOL 3350 17 GM POWDER PO SCH ×2 (10:21→12:45)
--- NOTE | 2019-05-03 13:06 | Gastroenterology Progress Note ---
Assessment and Plan - Patient Problems (1) Radiation proctitis Current Visit: Yes Status: Acute Plan to address problem: - EGD/Flex 04/2019 and colon 02/2019 otherwise negative. - Radiation was 2019 (for prostate CA) so cautioned patient he will continue to bleed, likely for months. - If no need for transfusion, and no bleeding between BMs, OK to d/c home on daily ASA or plavix for his recent TIA. - If bleeding becomes a problem, will need repeat colonoscopy with APC. - Did caution him to continue daily Senna or miralax for his chronic constipati on. - We will sign off; please call if needed. Subjective Date of service: 05/03/19 Principal diagnosis: Rectal Bleeding Interval history: The patient has not had a BM today. There has been no pain or N/V after the EGD/Flex. Objective - Constitutional Vitals: Temp Pulse Resp BP Pulse Ox 98.4 F 93 H 18 141/66 96 05/03/19 12:22 05/03/19 12:22 05/03/19 12:22 05/03/19 12:22 05/03/19 12:22 General appearance: no acute distress - Respiratory Respiratory effort: normal Respiratory: bilateral: CTA - Cardiovascular Rhythm: regular Heart Sounds: Present: S1 & S2 - Gastrointestinal General gastrointestinal: Present: soft, non-tender, non-distended - Labs CBC & Chem 7: 05/03/19 05:27 05/03/19 05:27 Labs: Laboratory Results - last 24 hr 05/02/19 05/02/19 05/03/19 17:18 21:43 05:27 Hgb 9.3 L Hct 27.2 L Sodium Potassium Chloride Carbon Dioxide Anion Gap BUN Creatinine Estimated GFR BUN/Creatinine Ratio Glucose POC Glucose 123 H 182 H Calcium 05/03/19 05/03/19 05/03/19 05:27 07:25 11:32 Hgb Hct Sodium 136 L Potassium 4.6 Chloride 95.8 L Carbon Dioxide 23 Anion Gap 22 BUN 32 H Creatinine 7.3 H Estimated GFR 9 BUN/Creatinine Ratio 4 Glucose 261 H POC Glucose 273 H 236 H Calcium 8.9
--- NOTE | 2019-05-03 14:29 | Progress Note ---
Assessment and Plan 1. ESRD: Patient is on maintenance hemodialysis three times a week, TTS schedule. 2. FEN: Hyperkalemia, improved. Metabolic acidosis, on HD. Renal diet. Monitor. 3. Acute CVA. 4. GI bleed. 5. Anemia: POA. GI bleed. Epogen with HD. 6. Uncontrolled HTN: Monitor BP. 7. Penile ulcer. Examination: General appearance: well-developed, well-nourished, appears stated age, not in distress HEENT: ATNC, MENG, vision intact, hearing diminished Neck: neck supple, trachea midline Respiratory: Clear to Ascultation Heart: regular, S1S2, no murmurs Gastrointestinal: soft, normoactive bowel sounds, not tender Integumentary: warm and dry, papular pigmented rash over both LEs Neurologic: no asterixis, alert and oriented x3, CN 3-12 intact, muscle strength appears equal Ext: no edema Hemodialysis access: L FA AVF Subjective Date of service: 05/03/19 Principal diagnosis: Rectal Bleeding Interval history: Patient was seen and examined at the bedside. No new complaint. Objective - Vital Signs Vital signs: Vital Signs - 12hr 05/03/19 05/03/19 05/03/19 04:00 04:13 06:05 Temperature 98.0 F Pulse Rate 96 H 96 H 96 H Respiratory 20 Rate Respiratory 20 Rate [Penis] Blood Pressure 141/67 141/67 O2 Sat by Pulse 99 Oximetry 05/03/19 05/03/19 05/03/19 08:11 10:20 12:22 Temperature 99.0 F 98.4 F Pulse Rate 81 81 93 H Respiratory 18 18 Rate Respiratory Rate [Penis] Blood Pressure 151/71 151/71 141/66 O2 Sat by Pulse 95 96 Oximetry - Lab 05/03/19 05:27 05/03/19 05:27 Most recent lab results Calcium 8.9 mg/dL (8.4-10.2) 05/03/19 05:27 Phosphorus 6.00 mg/dL (2.5-4.5) H 04/30/19 04:40 Medications & Allergies - Medications Allergies/Adverse Reactions: Allergies No Known Allergies Allergy (Unverified 10/14/18 12:07) Home Medications: Home Medications Medication Instructions Recorded Confirmed Last Taken Type Sevelamer Carbonate [Renvela] 800 mg PO TIDWM 04/29/19 04/29/19 1 Day Ago History ~04/28/19 carvediloL [Coreg] 12.5 mg PO BID 04/29/19 04/29/19 1 Day Ago History ~04/28/19 glyBURIDE [Diabeta] 5 mg PO BID 04/29/19 04/29/19 1 Day Ago History ~04/28/19 AtorvaSTATin [Lipitor] 40 mg PO QHS #30 tablet 05/02/19 Unknown Rx amLODIPine 10 mg PO QDAY #30 tablet 05/02/19 Unknown Rx Aspirin [Aspirin BABY CHEW TAB] 81 mg PO QDAY #30 tab.chew 05/03/19 Unknown Rx Ciprofloxacin HCl [Ciprofloxacin 500 mg PO Q12HR #10 tab 05/03/19 Unknown Rx TAB] Pantoprazole [Protonix TAB] 40 mg PO BID #60 tablet 05/03/19 Unknown Rx Active Medications: Generic Name Dose Route Start Last Admin Trade Name Freq PRN Reason Stop Dose Admin Acetaminophen 650 mg 04/29/19 15:45 04/30/19 00:11 Tylenol PO 650 mg Q4H PRN Administration Pain, Mild (1-3) Amlodipine Besylate 10 mg 04/30/19 14:00 05/03/19 10:20 Amlodipine PO 10 mg QDAY ALMITA Administration Aspirin 81 mg 05/02/19 17:00 05/03/19 10:19 Baby Aspirin PO 81 mg QDAY ALMITA Administration Atorvastatin Calcium 40 mg 04/29/19 22:00 05/02/19 23:10 Lipitor PO 40 mg QHS ALMITA Administration Carvedilol 12.5 mg 04/29/19 22:00 05/03/19 10:20 Coreg PO 12.5 mg BID ALMITA Administration Epoetin Rudi 10,000 unit 04/30/19 06:25 05/02/19 12:27 Procrit SUB-Q 10,000 unit JACKIE PRN Administration hemodialysis Heparin Sodium (Porcine) 5,000 unit 04/29/19 22:00 05/03/19 10:20 Heparin SUB-Q 5,000 unit Q12HR ALMITA Administration Heparin Sodium (Porcine) 2,000 unit 04/30/19 06:25 Heparin 10,000 Units/10 Ml IV JACKIE PRN hemodialysis Hydralazine HCl 20 mg 04/29/19 18:54 04/30/19 21:06 Apresoline IV 20 mg Q4HR PRN Administration HTN SBP>180 Hydralazine HCl 50 mg 04/30/19 14:00 05/03/19 06:05 Apresoline PO 50 mg Q8HR ALMITA Administration Sodium Chloride 100 mls @ 999 mls/hr 04/30/19 06:25 Nacl 0.9% IV JACKIE PRN Hypotension Sodium Chloride 1,000 mls @ 50 mls/hr 05/02/19 13:00 05/02/19 14:51 Nacl 0.9% 1000 Ml IV 50 mls/hr DIRECT ALMITA Administration Metoclopramide HCl 5 mg 04/29/19 15:45 Reglan PO Q6H PRN Nausea And Vomiting Morphine Sulfate 2 mg 04/30/19 13:08 05/02/19 17:45 Morphine IV 2 mg Q4H PRN Administration Pain, Moderate (4-6) Ondansetron HCl 4 mg 04/29/19 15:45 04/30/19 00:49 Zofran IV 4 mg Q8H PRN Administration Nausea And Vomiting Pantoprazole Sodium 40 mg 05/03/19 22:00 Protonix PO BID ALMITA Polyethylene Glycol 17 gm 05/02/19 15:00 05/03/19 12:45 Miralax 3350 PO 05/03/19 15:00 17 gm BID ALMITA Administration Promethazine HCl 25 mg 04/29/19 15:45 Phenergan VT Q6H PRN Nausea And Vomiting Senna/Docusate Sodium 1 tab 05/02/19 22:00 05/02/19 23:10 Senokot S PO 1 tab QHS ALMITA Administration Sevelamer Carbonate 800 mg 04/30/19 08:00 05/03/19 12:43 Renvela PO 800 mg TIDWM ALMITA Administration Sodium Chloride 10 ml 04/29/19 15:45 05/02/19 05:26 Sodium Chloride Flush Syringe 10 Ml IV 10 ml PRN PRN Administration LINE FLUSH
[2019-05-03] MEDS: MORPHINE 2 MG/1 ML INJ IV PRN (14:55)
--- NOTE | 2019-05-03 16:43 | Discharge Summary ---
Providers - Providers Date of Admission: 05/02/19 17:00 Date of discharge: 05/03/19 Attending physician: ANNE NIX 04/29/19 14:33 Consult to Physician [CONS] Stat Comment: Consulting Provider: JEFFRY GONZALES Physician Instructions: Reason For Exam: ESRD will need dialysis 04/29/19 15:45 Occupational Therapy Evaluate and Treat [CONS] Routine Comment: Reason For Exam: Neuro deficits Physical Therapy Evaluation and Treat [CONS] Routine Comment: Reason For Exam: Neuro deficits 04/30/19 13:14 Consult to Physician [CONS] Routine Comment: Consulting Provider: ALFONZO WATERS Physician Instructions: Reason For Exam: possible CVA 04/30/19 18:25 Consult to Physician [CONS] Routine Comment: Consulting Provider: SARI AGUERO Physician Instructions: Reason For Exam: acute rectal bleeding 04/30/19 22:45 Consult to Wound/ET Nurse [CONS] Routine Reason For Exam: wound eval Primary care physician: JAIR BERRY Hospitalization Condition: Stable Hospital course: Discharge diagnosis: /Acute rectal bleeding - will cont to check h/h, consulted GI, held any aspirin and heparin product - s/p bleeding scan - was normal - s/p sigmoidscopy and EGD today with following findings 1. Mild erosive gastritis/duodenitis 2. Small hiatal hernia 3. Brown stool to lower sigmoid (procedure stopped) 4. 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 Daily protonix. 2. Daily Sennakot for chronic constipation. 3. OK to resume ASA 81mg/day for recent TIA since bleeding is mild. 4. If bleeding/anemia worsens, will need repeat colonoscopy with possible APC to treat hypervascular lesions.) / TIA - MRI brain: no evidence of acute infarct, MRA head: no significant stenosis - CT head: no acute abnormality - Echo EF 45-50%, CUS: no significant stenosis. - Will hold Aspirin for now, as patient has bleeding per rectum - Cont. statin. LDL 118, goal LDL <70. - Telemetry monitoring while in patient - PT/OT/ST ordered - need acute rehab / Hypertensive urgency, malignant Monitor BP q shift, IV hydralazine prn, continue medical management. /Anemia, likley from acute on chronic blood loss - will cont to monitor H/H /DM type 2 ADA diet, insulin, accu check, hypoglycemia protocol / End stage renal disease on dialysis Nephrology consulted in ED, dialysis as per renal team, strict I/O, monitor uop q shift, avoid nephrotoxic agents /Hyperkalemia, k improved after HD, cont to monitor / DVT prophylaxis SCD to BLE while in bed Disposition: Family decided for services Physical exam General appearance: Present: no acute distress, well-nourished - EENT Eyes: PERRL, EOM intact ENT: hearing intact, clear oral mucosa Ears: bilateral: normal - Neck Neck: supple, normal ROM - Respiratory Respiratory effort: normal Respiratory: bilateral: CTA - Cardiovascular Rhythm: regular Heart Sounds: Present: S1 & S2. Absent: gallop, rub Extremities: pulses intact, No edema, normal color, Full ROM - Gastrointestinal General gastrointestinal: Present: soft, non-tender, non-distended, normal bowel sounds - Integumentary Integumentary: clear, warm, dry - Musculoskeletal Musculoskeletal: 1, strength equal bilaterally - Neurologic Neurologic: moves all extremities - Psychiatric Psychiatric: memory intact, appropriate mood/affect, intact judgment & insight Disposition: [id number] HOME UNDER HOME [facility] Time spent for discharge: 34 minutes Core Measure Documentation - Palliative Care Palliative Care/ Comfort Measures: Not Applicable - Core Measures Any of the following diagnoses?: history only Exam - Constitutional Vitals: Temp Pulse Resp BP Pulse Ox 98.4 F 93 H 18 126/64 96 05/03/19 12:22 05/03/19 12:22 05/03/19 12:22 05/03/19 14:55 05/03/19 12:22 Plan Activity: fall precautions Weight Bearing Status: Non-Weight Bearing Diet: renal Wound: per wound nurse instructions Special Instructions: restrict fluid intake to (1.2 L per day) Durable Medical Equipment Needed Upon Discharge: [employer] Follow up with: PRIMARY CAREMD [Referring] - 3-5 Days NICHOLE DEAL MD [Staff Physician] - 7 Days Prescriptions: AtorvaSTATin [Lipitor] 40 mg PO QHS #30 tablet amLODIPine 10 mg PO QDAY #30 tablet Aspirin [Aspirin BABY CHEW TAB] 81 mg PO QDAY #30 tab.chew Pantoprazole [Protonix TAB] 40 mg PO BID #60 tablet
[2019-05-03 18:49] VITALS: BP 147/71
[2019-05-03] MEDS ORDERED: INSULIN REGULAR, HUMAN 100 UNITS/1 ML SUB-Q SCH (22:00)
[2019-05-03] MEDS ORDERED: PANTOPRAZOLE 40 MG TAB PO SCH (22:00)
== END 2019-05-03 20:53 | disposition home or self-care (01) | DRG 304 ==
LOC: ED 10:15 → 4A 15:45 → OBSVTOIN 05-02 17:00
PROVIDERS: ADMIT Internal Medicine; ATTEND Internal Medicine
PROC: 5A1D70Z Performance of Urinary Filtration, Intermittent, Less than 6 Hours Per Day (ICD-10-PCS; 2019-04-30)
PROC: 0DB68ZX Excision of Stomach, Via Natural or Artificial Opening Endoscopic, Diagnostic (ICD-10-PCS; principal; 2019-05-02)
PROC: 0DJD8ZZ Inspection of Lower Intestinal Tract, Via Natural or Artificial Opening Endoscopic (ICD-10-PCS; 2019-05-02)
PROC: 5A1D70Z Performance of Urinary Filtration, Intermittent, Less than 6 Hours Per Day (ICD-10-PCS; 2019-05-02)
DX: I16.0 Hypertensive urgency (principal); K29.01 Acute gastritis with bleeding; N18.6 End stage renal disease; K29.81 Duodenitis with bleeding; G45.9 Transient cerebral ischemic attack, unspecified; D62 Acute posthemorrhagic anemia; E87.2 Acidosis; I69.351 Hemiplegia and hemiparesis following cerebral infarction affecting right dominant side; I12.0 Hypertensive chronic kidney disease with stage 5 chronic kidney disease or end stage renal disease; K62.7 Radiation proctitis; K44.9 Diaphragmatic hernia without obstruction or gangrene; E87.5 Hyperkalemia; E11.22 Type 2 diabetes mellitus with diabetic chronic kidney disease; E66.9 Obesity, unspecified; Z82.49 Family history of ischemic heart disease and other diseases of the circulatory system; Z83.3 Family history of diabetes mellitus; Z79.899 Other long term (current) drug therapy; Z99.2 Dependence on renal dialysis; Z68.31 Body mass index [BMI] 31.0-31.9, adult
CPT/HCPCS: 36415; 70450; 70544; 70547; 70551; 71045; 78278; 80048; 80061; 80074; 82962; 84100; 84484; 85014; 85018; 85025; 85027; 85610; 85670; 85730; 87076; 87116; 87186; 88305; 88342; 93005; 93010; 93306; 93880; 96374; G0378; A9270-GY; A9560; C9113; J0360; J0885; J1642; J1644; J2270; J2405; J2704; J7030

== ENCOUNTER 2019-05-22 07:58 | Outpatient (CLI) | payer MEDICARE ==
[2019-05-22] MEDS ORDERED: LIDOCAINE (4%) 40 MG/ML TOPICAL SOLN 50 ML BOTTLE TP ONE (08:30)
== END 2019-05-22 07:59 | disposition home or self-care (01) ==
LOC: WOUND 07:58
PROVIDERS: ATTEND Surgery
DX: E11.622 Type 2 diabetes mellitus with other skin ulcer (principal); L98.492 Non-pressure chronic ulcer of skin of other sites with fat layer exposed; I10 Essential (primary) hypertension; Z86.73 Personal history of transient ischemic attack (TIA), and cerebral infarction without residual deficits; Z85.46 Personal history of malignant neoplasm of prostate
CPT/HCPCS: 11042; 82962; G0463; 99204; 99214

== ENCOUNTER 2019-05-22 10:10 | Outpatient (CLI) | payer MEDICARE ==
[2019-05-22 10:41] LABS: Hematocrit 27.8 % (35.5-45.6)
== END 2019-05-22 10:11 | disposition home or self-care (01) ==
LOC: LAB 10:10
PROVIDERS: ATTEND Surgery
DX: N48.5 Ulcer of penis (principal); E11.628 Type 2 diabetes mellitus with other skin complications
CPT/HCPCS: 36415; 83036; 85014; 85018; 86592; 86689